=== PATIENT | female | born 1950 | race Caucasian/White ===

== ENCOUNTER → 2020-03-13 08:03 | Outpatient (BNVA) | payer MEDICARE, OTHER, SELFPAY | PROVIDERS: PCP Internal Medicine; Referring Provider Internal Medicine; Visit Provider Student in an Organized Health Care Education/Training Program | DX: Z13.89 Encounter for screening for other disorder (principal) | CPT/HCPCS: Q3014 ==

== ENCOUNTER 2021-07-18 11:01 | Outpatient (REF) | payer MEDICARE, OTHER, SELFPAY ==
--- NOTE | ~2021-07-18 | US_ITS ---
EXAMINATION: US VENOUS ULTRASOUND WITH DOPPLER LOWER EXTREMITY, LEFT CLINICAL INFORMATION: Left leg pain. COMPARISON: None TECHNIQUE: Ultrasound of the deep veins is performed from the hip to the calf with compression sonography and color and pulse Doppler assessment. Spectral analysis with color-flow imaging is performed. FINDINGS: There is normal venous compression and respiratory variation and augmented flow. The visualized common femoral vein, superficial femoral vein, profunda femoral vein, popliteal vein, and the trifurcation region shows no evidence of deep venous thrombosis. There is no significant popliteal fossa cyst. Trace amount of fluid is noted within the articular surface. If the patient's symptoms persist, followup ultrasound in 5 days 7 days might be of value to exclude proximal propagation from a non-visualized calf vein. US/US venous duplex LE IMPRESSION: No DVT demonstrated in the left lower extremity. Trace amount of fluid within the left knee.
== END 2021-07-18 11:02 | disposition home or self-care (01) ==
LOC: HO.US 11:01
PROVIDERS: PCP Internal Medicine; Visit Provider Internal Medicine
DX: M79.605 Pain in left leg (principal)
CPT/HCPCS: 93971

== ENCOUNTER 2023-02-04 09:23 | Outpatient (AMB) | payer OTHER, SELFPAY ==
[2023-02-04 09:25] VITALS: BP 130/70; PULSE 63; O2SAT 98; BMI 30.6
--- NOTE | 2023-02-04 09:25 | A.OFFPC_ITS ---
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: Not Required per policy Accompanied by: Self / Same As Patient Allergies penicillin V Allergy (Mild, Verified 02/04/23 09:44) Rash nabumetone Adverse Reaction (Intermediate, Verified 02/04/23 09:44) tinnitus Medication List - Last Reconciled 02/04/23 by Steven Casas MD acetaminophen ER (Tylenol Arthritis Pain) 650 mg PO Q8H PRN bupropion HCl 100 mg PO .QD 90 days cholecalciferol (vitamin D3) 50 mcg PO DAILY 90 days lorazepam 0.5 mg PO DAILY PRN 30 days methylphenidate HCl 10 mg PO BID PRN 30 days naproxen 500 mg PO BID PRN 10 days oxycodone 5 mg PO .2 to 3 times a day PRN 28 days tramadol 50 mg PO .3 to 4 times a day PRN 30 days Tobacco use date assessed: 07/08/22 Fall risk assessment: No Falls in past year Last assessed Fall Risk: 02/04/23 Dental Screening Dental Screen Date: 02/04/23 Did you have a dental visit in the last 12 months?: Yes Did you have a dental problem in the last 6 months where you did not have access to dental care?: No Was dental information given to patient?: Patient has dentist HPI fibromyalgia HPI Details Patient comes in today for her follow up States that she feels okay She denies any headaches or dizziness Denies any chest pains, no SOB No nausea/vomiting, no abdominal pain No change in bowel habits noted States that her muscle aches and joint pains remain mostly adequately controlled on her current meds She also sees her chiropractor when needed and states that her chiropractor has helped her a lot Needs her Vitamin D Rx refilled Had her follow up labs done at [facility] in June 2022; has had no other follow up labs done since [facility] Medical History Overweight (BMI 25.0-29.9) Vitamin D deficiency Menopause Primary osteoarthritis of hands, bilateral Attention deficit disorder (ADD) Atypical squamous cells of undetermined significance (ASC-US) on cervical Pap smear (~2003) Allergic rhinitis Osteoarthritis Anxiety Depression Fibromyalgia Surgical History Hx of colonoscopy (~06/2022) History of breast lift Family History Father Stroke Mother Cervical cancer Uterine cancer Hypertension Maternal Grandmother Stroke Afib Maternal Grandfather Alcohol abuse Other Substance abuse Social History Housing: House Alcohol intake: current Alcohol intake frequency: a few times a week Patient Tobacco Use Status: Never used Tobacco e-Cigarette/Vaping Use: Never Used Second Hand Smoke Exposure: Yes service: No Current occupational status: retired Cognitive needs: No Hearing needs: No Vision needs: Yes Questionnaire Thrive Questionnaire Date Thrive assessed: 07/08/22 BELLA-7 AMB Questionnaire BELLA-7 Date BELLA - 7 assessed: 07/08/22 Source: Developed by Drs. Garret Shaikh, Gaye Levin, Fredy Davis and colleagues, with an educational jonathan from [employer]. Review of Systems Const Reports fatigue, Denies fever(s) and Denies headache(s) ENT Denies dysphagia, Denies dizziness, Denies otalgia, Denies headache(s) and Denies sore throat Card Denies chest pain, Denies palpitations and Denies dyspnea Resp Denies cough and Denies dyspnea GI Denies abdominal pain, Denies constipation, Denies dysphagia, Denies heartburn, Denies nausea and Denies vomiting Denies difficulty voiding, Denies nocturia and Denies dysuria Musc Details: (+) on and off pain over both legs, often at night Denies back pain, Reports myalgias (diffuse myalgia, on and off, but mostly manageable) and Reports arthralgias (involving multiple joints, including her left knee) Skin/Breast Denies rash Neuro Denies dizziness and Denies headache(s) Endo Reports fatigue and Denies palpitations Physical exam (Primary Care) Vital Signs: Last Vital Signs Pulse 63 02/04/23 09:25 BP 130/70 02/04/23 09:25 Pulse Ox 98 02/04/23 09:25 Oxygen Delivery Method Room Air 02/04/23 09:25 BMI result Body Mass Index 30.6 Tobacco/Smoking Status: Tobacco use Status Tobacco use date assessed 07/08/22 02/04/23 09:26 Patient Tobacco Use Status Never used Tobacco 02/04/23 09:26 e-Cigarette/Vaping Use Never Used 02/04/23 09:26 Thrive Assessment: Date of Thrive Assessment Date Thrive assessed 07/08/22 02/04/23 09:26 Const General: no acute distress and alert HENMT Ears: TM's normal bilaterally and EAC's normal Throat: Yes posterior oropharynx normal and Yes tonsils normal (no TP congestion noted) Neck Neck: Yes no lymphadenopathy and Yes supple Resp Auscultation: clear to auscultation bilaterally, no rales and no wheezes Cardio Rate: regular rate Rhythm: regular rhythm Heart sounds: no murmurs GI Palpation (GI): Soft to palpation and nontender Auscultation: normal bowel sounds Back/Spine/Pelvis Thoracic/Lumbar Spine: lumbar spinal tenderness Extrem General: Yes no clubbing, cyanosis or edema Left lower extremity: knee ((+) small cyst behind the left knee (Han's cyst)) Details: tenderness; no swelling Assessment and Plan Assessment & Plan (1) Fibromyalgia: Code(s): M79.7 - Fibromyalgia Plan: Patient is encouraged again on regular exercises to help manage her fibromyalgia symptoms Continue Carisoprodol 350 mg TID PRN and Tramadol 50 mg TID PRN; takes Oxycodone 5 mg 2 to 3 times a day only as needed for severe pain that are not relieved by Tramadol (2) Left knee pain: Code(s): M25.562 - Pain in left knee Qualifiers: Chronicity: unspecified Qualified Code(s): M25.562 - Pain in left knee Plan: Left knee x-ray done at [facility] a few months ago came out normal Can continue to follow-up with orthopedics as scheduled although she has been seeing her chiropractor for this lately and feels that whatever they are doing is helping with her knee symptoms (3) Primary osteoarthritis of hands, bilateral: Code(s): M19.041 - Primary osteoarthritis, right hand; M19.042 - Primary osteoarthritis, left hand Plan: Takes OTC Tylenol ER 650 mg every 6 hours as needed Encouraged to continue with the hand exercises that she was previously taught regularly to help manage her hand and finger symptoms better (4) Anemia: Code(s): D64.9 - Anemia, unspecified Qualifiers: Anemia type: unspecified type Qualified Code(s): D64.9 - Anemia, unspecified Plan: H/H were normal on her labs done back in June 2022 Will continue to monitor her CBC regularly (5) Vitamin D deficiency: Code(s): E55.9 - Vitamin D deficiency, unspecified Plan: Continue Vitamin D3 2000 units QD - Rx refilled (6) Anxiety: Code(s): F41.9 - Anxiety disorder, unspecified Plan: Continue Lorazepam 0.5 mg QD PRN; Bupropion also helps with her anxiety (7) Depression: Code(s): F32.9 - Major depressive disorder, single episode, unspecified Qualifiers: Depression Type: major depressive disorder Major depression recurrence: recurrent Active/Remission status: currently active Major depression episode severity: unspecified Qualified Code(s): F33.9 - Major depressive disorder, recurrent, unspecified Plan: Continue Bupropion 100 mg TID (8) Attention deficit disorder (ADD): Code(s): F98.8 - Other specified behavioral and emotional disorders with onset usually occurring in childhood and adolescence Qualifiers: Hyperactivity presence: absent Qualified Code(s): F98.8 - Other specified behavioral and emotional disorders with onset usually occurring in childhood and adolescence Plan: Continue Methylphenidate 10 mg BID as needed - states that she only takes her Rx when she has a lot of paperworks to do at home (9) Overweight (BMI 25.0-29.9): Code(s): E66.3 - Overweight Plan: Reinforced diet/exercise as tolerated/lose weight Plan Follow up in 6 months Orders: Orders Complete Blood Count Auto Diff 6 Months D64.9 - Anemia, unspecified Comprehensive Wells. Panel Fast 6 Months E55.9 - Vitamin D deficiency, unspecified, M79.7 - Fibromyalgia, R73.01 - Impaired fasting glucose Lipid Panel 6 Months E78.00 - Pure hypercholesterolemia, unspecified TSH reflex Free T4 6 Months E78.00 - Pure hypercholesterolemia, unspecified Vitamin D 25-OH Total 6 Months E55.9 - Vitamin D deficiency, unspecified Hemoglobin A1c 6 Months R73.01 - Impaired fasting glucose UA CC w/rflx Micro + Cult 6 Months R30.0 - Dysuria Medications: Refilled cholecalciferol (vitamin D3) 50 mcg PO DAILY 90 days 90 caps 3RF E55.9 - Vitamin D deficiency, unspecified Coding Level of Care Code Est Pt Level 4 (55374) Diagnoses Fibromyalgia M79.7 Left knee pain, unspecified chronicity M25.562 Chronicity: unspecified Primary osteoarthritis of hands, bilateral M19.041; M19.042 Anemia, unspecified type D64.9 Anemia type: unspecified type Vitamin D deficiency E55.9 Anxiety F41.9 Episode of recurrent major depressive disorder, unspecified depression episode severity F33.9 Depression Type: major depressive disorder Major depression recurrence: recurrent Active/Remission status: currently active Major depression episode severity: unspecified Attention 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.8 Hyperactivity presence: absent Overweight (BMI 25.0-29.9) E66.3
== END 2023-02-04 09:53 | disposition home or self-care (01) ==
PROVIDERS: Visit Provider Internal Medicine
DX: M79.7 Fibromyalgia (principal); F33.9 Major depressive disorder, recurrent, unspecified; M25.562 Pain in left knee; M19.041 Primary osteoarthritis, right hand; M19.042 Primary osteoarthritis, left hand; D64.9 Anemia, unspecified; E55.9 Vitamin D deficiency, unspecified; F41.9 Anxiety disorder, unspecified; F98.8 Other specified behavioral and emotional disorders with onset usually occurring in childhood and adolescence; E66.3 Overweight
CPT/HCPCS: 99214

== ENCOUNTER 2023-08-09 08:56 | Outpatient (AMB) | payer OTHER, SELFPAY ==
--- NOTE | 2023-08-09 08:58 | MHC.PC.OV ---
Vital Signs 08/09/23 09:01 08/09/23 09:06 Height 5 ft 4 in Weight 171 lb 2 oz BMI 29.4 BP 140/70 H 122/70 Blood Pressure Location Lt brachial Rt brachial Position Sitting Sitting Pulse 66 Pulse Source Pulse Oximeter Pulse Oximetry (%) 97 Oxygen Delivery Method Room Air Intake Visit Reasons: 6 Month F/U Intake Note: Patient is here to follow up on IFG, Fibromyalgia, Depression. Screen And Cyclone Repairer Required: No Corporate Administrator: Not Required per policy Accompanied by: Self / Same As Patient Allergies penicillin V Allergy (Mild, Verified 08/09/23 09:48) Rash nabumetone Adverse Reaction (Intermediate, Verified 08/09/23 09:48) tinnitus Medication List - Last Reconciled 08/09/23 by Steven Casas MD acetaminophen ER (Tylenol Arthritis Pain) 650 mg PO Q8H PRN bupropion HCl 100 mg PO .QD 90 days cholecalciferol (vitamin D3) 50 mcg PO DAILY 90 days lorazepam 0.5 mg PO DAILY PRN 30 days methylphenidate HCl 10 mg PO BID PRN 30 days naproxen 500 mg PO BID PRN 10 days oxycodone 5 mg PO .2 to 3 times a day PRN 28 days scopolamine base (Transderm-Scop) 1 patch transdermal Q3D PRN tramadol 50 mg PO .3 to 4 times a day PRN 30 days Tobacco use date assessed: 08/09/23 Fall risk assessment: No Falls in past year Last assessed Fall Risk: 08/09/23 Dental Screening Dental Screen Date: 08/09/23 Did you have a dental visit in the last 12 months?: Yes Did you have a dental problem in the last 6 months where you did not have access to dental care?: No Was dental information given to patient?: Patient has dentist HPI 6 Month F/U HPI Details Patient comes in today for her follow up visit States that she feels okay She denies any headaches or dizziness States that it took a while for her previous bouts of vertigo to clear up but it gradually did with physical therapy, which she went to for a while Denies any chest pains, no SOB No nausea/vomiting, no abdominal pain No change in bowel habits noted States that her muscle aches and joint pains remain mostly adequately controlled on her current meds Would like to get refills on her Lorazepam and Carisoprodol - states that it has been a couple of years now since she last filled her Rx for Carisoprodol as she only takes it when absolutely needed Had her follow up labs done at [facility] in [place] a couple of weeks ago - to discuss her results [facility] Medical History Overweight (BMI 25.0-29.9) Vitamin D deficiency Menopause Primary osteoarthritis of hands, bilateral Attention deficit disorder (ADD) Atypical squamous cells of undetermined significance (ASC-US) on cervical Pap smear (~2003) Allergic rhinitis Osteoarthritis Anxiety Depression Fibromyalgia Surgical History Hx of colonoscopy (~06/2022) History of breast lift Family History Father Stroke Mother Cervical cancer Uterine cancer Hypertension Maternal Grandmother Stroke Afib Maternal Grandfather Alcohol abuse Other Substance abuse Social History Housing: House Alcohol intake: current Alcohol intake frequency: a few times a week Patient Tobacco Use Status: Never used Tobacco e-Cigarette/Vaping Use: Never Used Second Hand Smoke Exposure: Yes service: No Current occupational status: retired Cognitive needs: No Hearing needs: No Vision needs: Yes (Glasses) Questionnaire PHQ-9 Over the last 2 weeks, how often have you been bothered by any of the following problems? 1. Little interest or pleasure in doing things: not at all 2. Feeling down, depressed, or hopeless: not at all 3. Trouble falling or staying asleep, or sleeping too much: not at all 4. Feeling tired or having little energy: not at all 5. Poor appetite or overeating: not at all 6. Feeling bad about yourself - or that you are a failure or have let yourself or your family down: not at all 7. Trouble concentrating on things, such as reading the newspaper or watching television: not at all 8. Moving or speaking so slowly that other people could have noticed. Or the opposite - being so fidgety or restless that you have been moving around a lot more than usual: not at all 9. Thoughts that you would be better off or of hurting yourself in some way: not at all Total score: 0 Depression Screening Interpretation: Negative Depression Screening Done: Yes 99186 - PHQ-9 Billing: Yes Source: Developed by Drs. Garret Shaikh, Gaye Levin, Fredy Davis and colleagues, with an educational jonathan from [employer]. Thrive Questionnaire Date Thrive assessed: 08/09/23 I am a: Patient What is your living situation today?: I have a steady place to live Within the past 12 months, did the food you bought not last and you didn't have the money to get more?: Never true Within the past 12 months, did you worry whether your food would run out before you got money to buy more?: Never true Do you have trouble paying for medicines?: No Do you have trouble getting transportation to medical appointments?: No Do you have trouble paying your heating and electricity bill?: No Do you have trouble taking care of your child, family member or friend?: No Do you have trouble with day-to-day activities such as bathing, preparing meals, shopping, managing finances, etc.?: No Are you currently unemployed and looking for a job?: No Are you interested in more education?: No Currently or been in a relationship where the following occur: no concerns reported THRIVE Score: 0 AUDIT C Alcohol Use Questionnaire (AUDIT-C) 1. How often do you have a drink containing alcohol?: 2-3 times a week 2. How many drinks containing alcohol do you have on a typical day when you are drinking?: 1 or 2 3. How often do you have six or more drinks on one occasion?: Never Total Score: 3 Score Reviewed/Action Taken: Yes BELLA-7 AMB Questionnaire BELLA-7 Date BELLA - 7 assessed: 08/09/23 Feeling nervous, anxious, or on edge: 0 = Not at all Not being able to stop or control worryin = Not at all Worrying too much about different things: 0 = Not at all Trouble relaxin = Not at all Being so restless that it is hard to sit still: 0 = Not at all Becoming easily annoyed or irritable: 0 = Not at all Feeling afraid as if something awful might happen: 0 = Not at all Total BELLA-7 score (0-4 normal; 5-9 mild; 10-14 moderate; 15-21 severe): 0 Source: Developed by Drs. Garret Shaikh, Gaye Levin, Fredy Davis and colleagues, with an educational jonathan from [employer]. Review of Systems Const Denies chills, Denies fatigue, Denies fever(s) and Denies headache(s) ENT Denies dysphagia, Denies dizziness, Denies otalgia, Denies headache(s), Denies odynophagia and Denies sore throat Card Denies chest pain, Denies palpitations and Denies dyspnea Resp Denies cough and Denies dyspnea GI Denies abdominal pain, Denies constipation, Denies dysphagia, Denies heartburn, Denies diarrhea, Denies nausea, Denies odynophagia and Denies vomiting Denies difficulty voiding, Denies nocturia, Denies dysuria and Denies urinary urgency Musc Details: (+) on and off pain over both legs, often at night Denies back pain, Reports myalgias (diffuse myalgia, on and off, but mostly manageable) and Reports arthralgias (involving multiple joints, including her left knee) Skin/Breast Denies rash Neuro Denies dizziness and Denies headache(s) Endo Denies fatigue and Denies palpitations Physical exam (Primary Care) Vital Signs: Last Vital Signs Pulse 66 08/09/23 09:01 BP 122/70 08/09/23 09:06 Pulse Ox 97 08/09/23 09:01 Oxygen Delivery Method Room Air 08/09/23 09:01 BMI result Body Mass Index 29.4 Tobacco/Smoking Status: Tobacco use Status Tobacco use date assessed 08/09/23 08/09/23 09:03 Patient Tobacco Use Status Never used Tobacco 08/09/23 09:03 e-Cigarette/Vaping Use Never Used 08/09/23 09:03 PHQ-9: PHQ-9 Score PHQ-9: Total score 0 08/09/23 09:03 Depression Screening Interpretation: Negative Thrive Assessment: Date of Thrive Assessment Date Thrive assessed 08/09/23 08/09/23 09:03 Currently or been in a relationship where the following occur: no concerns reported Const General: no acute distress and alert HENMT Ears: TM's normal bilaterally and EAC's normal Throat: Yes posterior oropharynx normal and Yes tonsils normal (no TP congestion noted) Neck Neck: Yes no lymphadenopathy and Yes supple Thyroid: Thyroid normal Resp Auscultation: clear to auscultation bilaterally, no rales and no wheezes Cardio Rate: regular rate Rhythm: regular rhythm Heart sounds: no murmurs GI Palpation (GI): Soft to palpation and nontender Auscultation: normal bowel sounds General: Yes no CVA tenderness Back/Spine/Pelvis Back: no CVA tenderness Thoracic/Lumbar Spine: lumbar spinal tenderness (mild) Skin Rashes: no rashes Extrem General: Yes no clubbing, cyanosis or edema Left lower extremity: knee ((+) small cyst behind the left knee (Han's cyst)) Details: tenderness; no swelling Assessment and Plan Assessment & Plan (1) Fibromyalgia: Code(s): M79.7 - Fibromyalgia Plan: Patient is encouraged again on regular exercises to help manage her fibromyalgia symptoms Continue Carisoprodol 350 mg TID PRN and Tramadol 50 mg TID PRN; takes Oxycodone 5 mg 2 to 3 times a day only as needed for severe pain that are not relieved by Tramadol (2) Left knee pain: Code(s): M25.562 - Pain in left knee Qualifiers: Chronicity: unspecified Qualified Code(s): M25.562 - Pain in left knee Plan: Left knee x-ray done at [facility] a few months ago came out normal Follow-up with orthopedics or chiropractor as scheduled or as needed (3) Primary osteoarthritis of hands, bilateral: Code(s): M19.041 - Primary osteoarthritis, right hand; M19.042 - Primary osteoarthritis, left hand Plan: Takes OTC Tylenol ER 650 mg every 6 hours as needed She is again encouraged to continue with the hand exercises that she was previously taught regularly to help manage her hand and finger symptoms better (4) Anemia: Code(s): D64.9 - Anemia, unspecified Qualifiers: Anemia type: unspecified type Qualified Code(s): D64.9 - Anemia, unspecified Plan: H/H were normal on her recent labs Will continue to monitor her CBC regularly (5) Vitamin D deficiency: Code(s): E55.9 - Vitamin D deficiency, unspecified Plan: Continue Vitamin D3 2000 units QD (6) Anxiety: Code(s): F41.9 - Anxiety disorder, unspecified Plan: Continue Lorazepam 0.5 mg QD PRN; Bupropion also helps with her anxiety (7) Depression: Code(s): F32.9 - Major depressive disorder, single episode, unspecified Qualifiers: Depression Type: major depressive disorder Major depression recurrence: recurrent Active/Remission status: currently active Major depression episode severity: unspecified Qualified Code(s): F33.9 - Major depressive disorder, recurrent, unspecified Plan: Continue Bupropion 100 mg TID (8) Attention deficit disorder (ADD): Code(s): F98.8 - Other specified behavioral and emotional disorders with onset usually occurring in childhood and adolescence Qualifiers: Hyperactivity presence: absent Qualified Code(s): F98.8 - Other specified behavioral and emotional disorders with onset usually occurring in childhood and adolescence Plan: Continue Methylphenidate 10 mg BID as needed - states that she only takes her Rx when she has a lot of paperworks to do at home (9) Overweight (BMI 25.0-29.9): Code(s): E66.3 - Overweight Plan: Reinforced diet/exercise as tolerated/lose weight Plan Follow up in 6 months Medications: Refilled carisoprodol 350 mg PO TID 10 days PRN 30 tabs 0RF muscle spasms lorazepam 0.5 mg PO DAILY 30 days PRN 30 tabs 0RF anxiety Coding Level of Care Code Est Pt Level 4 (03601) Diagnoses Fibromyalgia M79.7 Left knee pain, unspecified chronicity M25.562 Chronicity: unspecified Primary osteoarthritis of hands, bilateral M19.041; M19.042 Anemia, unspecified type D64.9 Anemia type: unspecified type Vitamin D deficiency E55.9 Anxiety F41.9 Episode of recurrent major depressive disorder, unspecified depression episode severity F33.9 Depression Type: major depressive disorder Major depression recurrence: recurrent Active/Remission status: currently active Major depression episode severity: unspecified Attention 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.8 Hyperactivity presence: absent Overweight (BMI 25.0-29.9) E66.3
[2023-08-09 09:01] VITALS: BP 140/70; PULSE 66; O2SAT 97; BMI 29.4
[2023-08-09 09:06] VITALS: BP 122/70
== END 2023-08-09 10:01 | disposition home or self-care (01) ==
PROVIDERS: PCP Internal Medicine; Visit Provider Internal Medicine
DX: M79.7 Fibromyalgia (principal); M25.562 Pain in left knee; M19.041 Primary osteoarthritis, right hand; F33.9 Major depressive disorder, recurrent, unspecified; M19.042 Primary osteoarthritis, left hand; D64.9 Anemia, unspecified; E55.9 Vitamin D deficiency, unspecified; F41.9 Anxiety disorder, unspecified; F98.8 Other specified behavioral and emotional disorders with onset usually occurring in childhood and adolescence; E66.3 Overweight
CPT/HCPCS: 99214

== ENCOUNTER 2024-04-27 11:35 | Outpatient (AMB) | payer OTHER, SELFPAY ==
[2024-04-27 11:36] VITALS: BP 122/78; PULSE 59; O2SAT 99
--- NOTE | 2024-04-27 11:36 | A.OFFPC_ITS ---
Vital Signs 04/27/24 11:36 Height 5 ft 4 in BMI Reason not done Patient refused/unable BP 122/78 Blood Pressure Location Lt brachial Position Sitting Pulse 59 Pulse Source Pulse Oximeter Pulse Oximetry (%) 99 Oxygen Delivery Method Room Air Intake Visit Reasons: Rsched from 02/09 Fibromyalgia, ADD, IFG, OA Sourcing Consultant Required: No Accompanied by: Self / Same As Patient Allergies penicillin V Allergy (Mild, Verified 04/27/24 12:04) Rash nabumetone Adverse Reaction (Intermediate, Verified 04/27/24 12:04) tinnitus Medication List - Last Reconciled 04/27/24 by Steven Casas MD acetaminophen ER (Tylenol Arthritis Pain) 650 mg PO Q8H PRN bupropion HCl 100 mg PO .QD 90 days carisoprodol 350 mg PO TID PRN 10 days cholecalciferol (vitamin D3) 50 mcg PO DAILY 90 days lorazepam 0.5 mg PO DAILY PRN 30 days methylphenidate HCl 10 mg PO BID PRN 30 days naproxen 500 mg PO BID PRN 10 days oxycodone 5 mg PO .2 to 3 times a day PRN 28 days scopolamine base (Transderm-Scop) 1 patch transdermal Q3D PRN tramadol 50 mg PO .3 to 4 times a day PRN 30 days Tobacco use date assessed: 04/27/24 Fall risk assessment: No Falls in past year Last assessed Fall Risk: 04/27/24 Dental Screening Dental Screen Date: 04/27/24 Did you have a dental visit in the last 12 months?: Yes Did you have a dental problem in the last 6 months where you did not have access to dental care?: No Was dental information given to patient?: Patient has dentist HPI Rsched from 02/09 Fibromyalgia, ADD, IFG, OA HPI Details Patient comes in today for her follow up visit States that she feels okay She denies any headaches or dizziness Denies any chest pains, no SOB No nausea/vomiting, no abdominal pain No change in bowel habits noted States that her muscle aches and joint pains remain mostly adequately controlled on her current meds - needs a couple of her Rx refilled today She had her follow-up labs done at [facility] in [place], [place] a couple of days ago - to discuss her results [facility] Medical History Overweight (BMI 25.0-29.9) Vitamin D deficiency Menopause Primary osteoarthritis of hands, bilateral Attention deficit disorder (ADD) Atypical squamous cells of undetermined significance (ASC-US) on cervical Pap smear (~2003) Allergic rhinitis Osteoarthritis Anxiety Depression Fibromyalgia Surgical History Hx of colonoscopy (~06/2022) History of breast lift Family History Father Stroke Mother Cervical cancer Uterine cancer Hypertension Maternal Grandmother Stroke Afib Maternal Grandfather Alcohol abuse Other Substance abuse Social History Housing: House Alcohol intake: current Alcohol intake frequency: a few times a week Patient Tobacco Use Status: Never used Tobacco e-Cigarette/Vaping Use: Never Used Second Hand Smoke Exposure: Yes service: No Current occupational status: retired Cognitive needs: No Hearing needs: No Vision needs: Yes (Glasses) Questionnaire PHQ-9 Over the last 2 weeks, how often have you been bothered by any of the following problems? 1. Little interest or pleasure in doing things: not at all 2. Feeling down, depressed, or hopeless: not at all 3. Trouble falling or staying asleep, or sleeping too much: not at all 4. Feeling tired or having little energy: not at all 5. Poor appetite or overeating: not at all 6. Feeling bad about yourself - or that you are a failure or have let yourself or your family down: not at all 7. Trouble concentrating on things, such as reading the newspaper or watching television: not at all 8. Moving or speaking so slowly that other people could have noticed. Or the opposite - being so fidgety or restless that you have been moving around a lot more than usual: not at all 9. Thoughts that you would be better off or of hurting yourself in some way: not at all Total score: 0 Depression Screening Interpretation: Negative Depression Screening Done: Yes 06107 - PHQ-9 Billing: Yes Source: Developed by Drs. Garret Shaikh, Gaye B.Fredy Plata and colleagues, with an educational jonathan from [employer]. Thrive Questionnaire Date Thrive assessed: 04/27/24 I am a: Patient What is your living situation today?: I have a steady place to live Within the past 12 months, did the food you bought not last and you didn't have the money to get more?: Never true Within the past 12 months, did you worry whether your food would run out before you got money to buy more?: Never true Do you have trouble paying for medicines?: No Do you have trouble getting transportation to medical appointments?: No Do you have trouble paying your heating and electricity bill?: No Do you have trouble taking care of your child, family member or friend?: No Do you have trouble with day-to-day activities such as bathing, preparing meals, shopping, managing finances, etc.?: No Are you currently unemployed and looking for a job?: No Are you interested in more education?: No Please select the resources that you would like help with: None Currently or been in a relationship where the following occur: No concerns reported THRIVE Score: 0 AUDIT C Alcohol Use Questionnaire (AUDIT-C) 1. How often do you have a drink containing alcohol?: 2-3 times a week 2. How many drinks containing alcohol do you have on a typical day when you are drinking?: 1 or 2 3. How often do you have six or more drinks on one occasion?: Never Total Score: 3 Score Reviewed/Action Taken: Yes BELLA-7 AMB Questionnaire BELLA-7 Date BELLA - 7 assessed: 04/27/24 Feeling nervous, anxious, or on edge: 0 = Not at all Not being able to stop or control worryin = Not at all Worrying too much about different things: 0 = Not at all Trouble relaxin = Not at all Being so restless that it is hard to sit still: 0 = Not at all Becoming easily annoyed or irritable: 0 = Not at all Feeling afraid as if something awful might happen: 0 = Not at all Total BELLA-7 score (0-4 normal; 5-9 mild; 10-14 moderate; 15-21 severe): 0 Source: Developed by Drs. Garret Shaikh, Fredy Maher and colleagues, with an educational jonathan from [employer]. Review of Systems Const Denies chills, Denies fatigue, Denies fever(s) and Denies headache(s) ENT Denies dysphagia, Denies dizziness, Denies otalgia, Denies headache(s), Denies odynophagia and Denies sore throat Card Denies chest pain, Denies palpitations and Denies dyspnea Resp Denies cough and Denies dyspnea GI Denies abdominal pain, Denies constipation, Denies dysphagia, Denies heartburn, Denies diarrhea, Denies nausea, Denies odynophagia and Denies vomiting Denies difficulty voiding, Denies nocturia, Denies dysuria and Denies urinary urgency Musc Details: (+) on and off pain over both legs, often at night Denies back pain, Reports myalgias (diffuse myalgia, on and off, but mostly manageable) and Reports arthralgias (involving multiple joints, including her left knee) Skin/Breast Denies rash Neuro Denies dizziness and Denies headache(s) Endo Denies fatigue and Denies palpitations Physical exam (Primary Care) Vital Signs: Last Vital Signs Pulse 59 04/27/24 11:36 BP 122/78 04/27/24 11:36 Pulse Ox 99 04/27/24 11:36 Oxygen Delivery Method Room Air 04/27/24 11:36 Tobacco/Smoking Status: Tobacco use Status Tobacco use date assessed 04/27/24 04/27/24 11:42 Patient Tobacco Use Status Never used Tobacco 04/27/24 11:42 e-Cigarette/Vaping Use Never Used 04/27/24 11:42 PHQ-9: PHQ-9 Score PHQ-9: Total score 0 04/27/24 12:11 Depression Screening Interpretation: Negative Thrive Assessment: Date of Thrive Assessment Date Thrive assessed 04/27/24 04/27/24 11:42 Currently or been in a relationship where the following occur: No concerns reported Const General: no acute distress and alert HENMT Ears: TM's normal bilaterally and EAC's normal Throat: Yes posterior oropharynx normal and Yes tonsils normal (no TP congestion noted) Neck Neck: Yes supple and No lymphadenopathy Thyroid: Thyroid normal Resp Auscultation: clear to auscultation bilaterally, no rales and no wheezes Cardio Rate: regular rate Rhythm: regular rhythm Heart sounds: no murmurs GI Palpation (GI): Soft to palpation and nontender Auscultation: normal bowel sounds General: Yes no CVA tenderness Back/Spine/Pelvis Back: no CVA tenderness Thoracic/Lumbar Spine: lumbar spinal tenderness (mild) Skin Rashes: no rashes Extrem General: Yes no clubbing, cyanosis or edema Left lower extremity: knee Details: tenderness (mild); no swelling Coding Level of Care Code Est Pt Level 4 (18958) Diagnoses Fibromyalgia M79.7 Primary osteoarthritis of hands, bilateral M19.041; M19.042 Anemia, unspecified type D64.9 Anemia type: unspecified type Vitamin D deficiency E55.9 Impaired fasting glucose R73.01 Anxiety F41.9 Episode of recurrent major depressive disorder, unspecified depression episode severity F33.9 Depression Type: major depressive disorder Major depression recurrence: recurrent Active/Remission status: currently active Major depression episode severity: unspecified Attention 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.8 Hyperactivity presence: absent Overweight (BMI 25.0-29.9) E66.3 Encounter for screening mammogram for malignant neoplasm of breast Z12.31 Breast cancer screening modality: mammogram Screening for osteoporosis Z13.820 Additional Codes PHQ-9 - 66561 - PHQ-9 Billing: Yes ([id number]) Assessment & Plan Assessment & Plan (1) Fibromyalgia: Code(s): M79.7 - Fibromyalgia Category: Medical Plan: Patient is again encouraged on regular exercises and physical activity to help manage her fibromyalgia symptoms Continue Carisoprodol 350 mg TID PRN and Tramadol 50 mg TID PRN; she takes Oxycodone 5 mg 2 to 3 times a day only as needed for severe pain that are not relieved by Tramadol (2) Primary osteoarthritis of hands, bilateral: Code(s): M19.041 - Primary osteoarthritis, right hand; M19.042 - Primary osteoarthritis, left hand Category: Medical Plan: She takes OTC Tylenol ER 650 mg every 6 hours as needed Patient is again encouraged to continue with the hand exercises that she was previously taught on a regular basis to help manage her hand and finger symptoms (3) Anemia: Code(s): D64.9 - Anemia, unspecified Category: Medical Qualifiers: Anemia type: unspecified type Qualified Code(s): D64.9 - Anemia, unspecified Plan: Her H/H were normal on her recent labs Will continue to monitor her CBC regularly (4) Vitamin D deficiency: Code(s): E55.9 - Vitamin D deficiency, unspecified Category: Medical Plan: Continue Vitamin D3 2000 units QD (5) Impaired fasting glucose: Code(s): R73.01 - Impaired fasting glucose Category: Medical Plan: Her HgbA1c still pending at this time - we will try to follow-up the results of this over the next couple of days Reinforced low calorie/low carb diet (6) Anxiety: Code(s): F41.9 - Anxiety disorder, unspecified Category: Medical Plan: Continue Lorazepam 0.5 mg QD PRN; Bupropion also helps with her anxiety (7) Depression: Code(s): F32.9 - Major depressive disorder, single episode, unspecified Category: Medical Qualifiers: Depression Type: major depressive disorder Major depression recurrence: recurrent Active/Remission status: currently active Major depression episode severity: unspecified Qualified Code(s): F33.9 - Major depressive disorder, recurrent, unspecified Plan: Continue Bupropion 100 mg TID (8) Attention deficit disorder (ADD): Code(s): F98.8 - Other specified behavioral and emotional disorders with onset usually occurring in childhood and adolescence Category: Medical Qualifiers: Hyperactivity presence: absent Qualified Code(s): F98.8 - Other specified behavioral and emotional disorders with onset usually occurring in childhood and adolescence Plan: Continue Methylphenidate 10 mg BID as needed - states that she only takes her Rx when she has a lot of paperworks to do at home (9) Overweight (BMI 25.0-29.9): Code(s): E66.3 - Overweight Category: Medical Plan: Reinforced diet/exercise as tolerated/lose weight (10) Breast cancer screening: Code(s): Z12.39 - Encounter for other screening for malignant neoplasm of breast Category: Medical Qualifiers: Breast cancer screening modality: mammogram Qualified Code(s): Z12.31 - Encounter for screening mammogram for malignant neoplasm of breast Plan: Per request, will send her annual screening mammogram (11) Screening for osteoporosis: Code(s): Z13.820 - Encounter for screening for osteoporosis Category: Medical Plan: Will also send patient for repeat BMD for osteoporosis screening Her last BMD done in 2020 came up with normal bone density Plan Follow-up in 6 months Orders: Orders XR DEXA axial skeleton 04/27/24 Z78.0 - Asymptomatic menopausal state Comprehensive [place]. Panel Fast 6 Months E78.00 - Pure hypercholesterolemia, unspecified Vitamin D 25-OH Total 6 Months E55.9 - Vitamin D deficiency, unspecified Lipid Panel 6 Months E78.00 - Pure hypercholesterolemia, unspecified MM tomosynthesis screening BI 04/27/24 Z12.31 - Encounter for screening mammogram for malignant neoplasm of breast Complete Blood Count Auto Diff 6 Months D64.9 - Anemia, unspecified UA CC w/rflx Micro + Cult 6 Months R30.0 - Dysuria TSH reflex Free T4 6 Months E78.00 - Pure hypercholesterolemia, unspecified Hemoglobin A1c 6 Months E11.9 - Type 2 diabetes mellitus without complications Medications: Refilled methylphenidate HCl 10 mg PO BID 30 days PRN 60 tabs 0RF attention deficit F98.8 - Other specified behavioral and emotional disorders with onset usually occurring in childhood and adolescence oxycodone 5 mg PO .2 to 3 times a day 28 days PRN 56 tabs 0RF pain
--- OUTSIDE RECORDS SUMMARY | 2024-04-27 12:55 | XMS_ITS | Clinical Summary ---
Author Organization [facility] Address [address] [place] [address] Phone Care Team Providers Care Telecom Analyst Name Role Phone Diane Cui MD Primary Care Provider [phone] Immunizations Name Administration Dates Next Due Pfizer SARS-CoV-2 COVID-19, mRNA, LNP-S, preservative free 12/05/2020 Medical History Medical History Date Comments Depression DX:Depression Social History Tobacco Use Types Packs/Day Years Used Date Smoking Tobacco: Never Smokeless Tobacco: Never Comments Unknown Sex and Gender Information Value Date Recorded Sex Assigned at Female 04/26/2024 7:32 AM EST Legal Sex Female 5:00 PM EST Gender Identity Female 04/26/2024 7:32 AM EST Sexual Orientation Straight 04/26/2024 7: 32 AM EST Obstetrics History Plan of Treatment Health Maintenance Due Date Last Done Comments DTaP,Tdap,and Td Vaccines (1 - Tdap) 07/14/1970 Pneumococcal Vaccine: 50+ Years (1 of 1 - PCV) 07/14/2001 Zoster Vaccines (1 of 2) 07/14/2001 Colorectal Cancer Screening: Colonoscopy 02/04/2022 Depression Screening 02/04/2022 Falls Risk Assessment 02/04/2022 Hepatitis C Screening 02/04/2022 Medicare Annual Wellness Visit 02/04/2022 Social Influencers of Health Screening 02/04/2022 Breast Cancer Screening 08/13/2022 08/13/2020, 12/21 COVID-19 Vaccine ( season) 2023 12/24/2022, 11/13/2021, 12/05/2020 Influenza Vaccine (#1) 2023 11/06/2022 Cholesterol Screening (Lipid Panel) 04/26/2029 04/26/2024, 07/27/2023, 07/27/2023, Additional history exists Osteoporosis Screening (Bone Density Screening) 08/13/2030 08/13/2020 RSV Immunization Patients 60+ Years Old Completed 11/06/2022 HIB Vaccines Aged Out No longer eligi ble based on patient's age to complete this topic HPV Vaccines Aged Out No longer eligi ble based on patient's age to complete this topic Hepatitis A Vaccines Aged Out No long er eligible based on patient's age to complete this topic Hepatitis B Vaccines Aged Out No long er eligible based on patient's age to complete this topic IPV Vaccines Aged Out No longer eligi ble based on patient's age to complete this topic MMR Vaccines Aged Out No longer eligi ble based on patient's age to complete this topic Meningococcal ACWY Vaccine Aged Out N o longer eligible based on patient's age to complete this topic Meningococcal B Vacine Aged Out No lo nger eligible based on patient's age to complete this topic RSV Immunization Patients Under 20 months Aged Out No longer eligible based on patient's age to complete this topic Varicella Vaccines Aged Out No longer eligible based on patient's age to complete this topic Procedures Procedure Name Priority Date/Time Associated Diagnosis Comments ..URINALYSIS MICROSCOPIC REFLEX URINE CULTURE Routine 04/26/2024 8:09 AM EST Pure hypercholesterolemia Impaired fasting glucose Anemia, unspecified Dysuria Avitaminosis D URINALYSIS WITH REFLEX MICROSCOPIC AND CULTURE Routine 04/26/2024 8:09 AM EST Pure hypercholesterolemia Impaired fasting glucose Anemia, unspecified Dysuria Avitaminosis D CBC WITH AUTO DIFFERENTIAL Routine 04/26/2024 8:09 AM EST Pure hypercholesterolemia Impaired fasting glucose Anemia, unspecified Dysuria Avitaminosis D VITAMIN D 25 HYDROXY Routine 04/26/2024 8:09 AM EST Pure hypercholesterolemia Impaired fasting glucose Anemia, unspecified Dysuria Avitaminosis D URINALYSIS WITH REFLEX MICROSCOPIC AND CULTURE Routine 04/26/2024 8:09 AM EST Pure hypercholesterolemia Impaired fasting glucose Anemia, unspecified Dysuria Avitaminosis D THYROID STIMULATING HORMONE WITH REFLEX FREE T4 Routine 04/26/2024 8:09 AM EST Pure hypercholesterolemia Impaired fasting glucose Anemia, unspecified Dysuria Avitaminosis D CBC AND DIFFERENTIAL Routine 04/26/2024 8:09 AM EST Pure hypercholesterolemia Impaired fasting glucose Anemia, unspecified Dysuria Avitaminosis D HEMOGLOBIN A1C Routine 04/26/2024 8:09 AM EST Pure hypercholesterolemia Impaired fasting glucose Anemia, unspecified Dysuria Avitaminosis D FOLATE Routine 04/26/2024 8:09 AM EST Pure hypercholesterolemia Impaired fasting glucose Anemia, unspecified Dysuria Avitaminosis D LIPID PANEL WITH REFLEX TO DIRECT LDL Routine 04/26/2024 8:09 AM EST Pure hypercholesterolemia Impaired fasting glucose Anemia, unspecified Dysuria Avitaminosis D COMPREHENSIVE METABOLIC PANEL Routine 04/26/2024 8:09 AM EST Pure hypercholesterolemia Impaired fasting glucose Anemia, unspecified Dysuria Avitaminosis D CULTURE URINE Routine 04/26/2024 8:09 AM EST Pure hypercholesterolemia Impaired fasting glucose Anemia, unspecified Dysuria Avitaminosis D [facility] DEXA AXIAL SKELETON Routine 08/13/2020 5:28 PM EDT Encounter for screening for osteoporosis [facility] SCREENING DIGITAL Routine 08/13/2020 2:28 PM EDT Encounter for screening mammogram for malignant neoplasm of breast from Last 3 Months or Most Recently Relevant to Health Maintenance Results * (ABNORMAL) Urinalysis with reflex microscopic and culture (04/26/2024 8:09 AM EST) [facility] Signature Color, Urine Yellow Colorless, Yellow LAB URINALYSIS - AUTOMATED METHOD 04/26/2024 8:15 AM [facility] Clarity, Urine Clear Clear LAB URINALYSIS - AUTOMATED METHOD 04/26/2024 8:15 AM [facility] Specific Miller Urine 1.025 1.005 - 1.030 LAB URINALYSIS - AUTOMATED METHOD 04/26/2024 8:15 AM [facility] pH, Urine 5.5 5.0 - 8.0 pH LAB URINALYSIS - AUTOMATED METHOD 04/26/2024 8:15 AM [facility] Leukocytes, Urine Trace(A) Negative WBCs/mcL LAB URINALYSIS - AUTOMATED METHOD 04/26/2024 8:15 AM [facility] Nitrite, Urine Negative Negative LAB URINALYSIS - AUTOMATED METHOD 04/26/2024 8:15 AM [facility] Protein, Urine Negative Negative mg/dL LAB URINALYSIS - AUTOMATED METHOD 04/26/2024 8:15 AM [facility] Glucose, Urine Negative Negative mg/dL LAB URINALYSIS - AUTOMATED METHOD 04/26/2024 8:15 AM [facility] Ketones, Urine Negative Negative mg/dL LAB URINALYSIS - AUTOMATED METHOD 04/26/2024 8:15 AM [facility] Blood, Urine Small(A) Negative mg/dL LAB URINALYSIS - AUTOMATED METHOD 04/26/2024 8:15 AM [facility] Urine Urine specimen obtained by clean catch procedure / Unknown Non-blood Collection / Unknown 04/26/2024 8:09 AM EST 04/26/2024 8:12 AM EST us Diane Cui MD LAB URINE ORDERABLES Final R esult [facility] [address] [place] [address], [place] [phone] * (ABNORMAL) Urinalysis microscopic reflex urine culture (04/26/2024 8:09 AM EST) RBC, Urine 3 0 - 3 /HPF 04/26/2024 8:32 AM EST [facility] WBC, Urine 6(H) 0 - 5 /HPF 04/26/2024 8:32 AM [facility] Bacteria, Urine Trace(A) None /HPF 04/26/2024 8:32 AM [facility] Squamous Epithelial, Urine 1 0 - 5 /HPF 04/26/2024 8:32 AM [facility] WBC Clumps, Urine Rare(A) None /HPF 04/26/2024 8:32 AM [facility] Urine Urine specimen obtained by clean catch procedure / Unknown Non-blood Collection / Unknown 04/26/2024 8:09 AM EST 04/26/2024 8:12 AM EST us Diane Cui MD LAB URINE ORDERABLES Final R esult [facility] [address] [place] [address], [place] [phone] * (ABNORMAL) Lipid panel with reflex to direct LDL (04/26/2024 8:09 AM EST) Pathologist [facility] Cholesterol 195 0 - 200 mg/dL LAB CHEMISTRY METHOD 04/26/2024 2:[address] [facility] Triglycerides 56 <150 mg/dL LAB CHEMISTRY METHOD 04/26/2024 2:[address] [facility] HDL 95(H) 33 - 92 mg/dL LAB CHEMISTRY METHOD 04/26/2024 2:[address] [facility] LDL Calculated 89 50 - 130 mg/dL LAB CHEMISTRY METHOD 04/26/2024 2:49 PM EST [facility] VLDL Cholesterol Jose 11.2 mg/dL LAB CHEMISTRY METHOD 04/26/2024 2:49 PM EST [facility] Comment:No established refer ence range. Blood Venous blood specimen / Unknown Venipuncture / Unknown 04/26/2024 8:09 AM EST 04/26/2024 8:12 AM EST Diane Cui MD LAB BLOOD ORDERABLES Final R esult [facility] [address] [place] [address], [place] [phone] * Thyroid stimulating hormone with reflex free T4 (04/26/2024 8:09 AM EST) TSH 1.93 0.45 - 5.33 mcIU/mL LAB CHEMISTRY METHOD 04/26/2024 9:45 AM EST [facility] Blood Venous blood specimen / Unknown Venipuncture / Unknown 04/26/2024 8:09 AM EST 04/26/2024 8:12 AM EST Diane Cui MD LAB BLOOD ORDERABLES Final R esult [facility] [address] [place] [address], [place] [phone] * (ABNORMAL) CBC auto differential (04/26/2024 8:09 AM EST) WBC 4.6 4.0 - 10.5 K/mcL LAB HEMETOLOGY METHOD 04/26/2024 8:14 AM EST [facility] RBC 4.12(L) 4.20 - 5.40 M/mcL LAB HEMETOLOGY METHOD 04/26/2024 8:14 AM EST [facility] Hemoglobin 12.8 12.5 - 16.0 g/dL LAB HEMETOLOGY METHOD 04/26/2024 8:14 AM [facility] Hematocrit 39.6 37.0 - 47.0 % LAB HEMETOLOGY METHOD 04/26/2024 8:14 AM [facility] MCV 96.1 78.0 - 100.0 FL LAB HEMETOLOGY METHOD 04/26/2024 8:14 AM [facility] MCH 31.1 25.0 - 33.0 pcg LAB HEMETOLOGY METHOD 04/26/2024 8:14 AM [facility] MCHC 32.3 32.0 - 36.0 g/dL LAB HEMETOLOGY METHOD 04/26/2024 8:14 AM [facility] RDW 12.7 12.1 - 16.2 % LAB HEMETOLOGY METHOD 04/26/2024 8:14 AM [facility] Platelets 257 150 - 450 K/mcL LAB HEMETOLOGY METHOD 04/26/2024 8:14 AM [facility] MPV 9.5 7.4 - 11.4 FL LAB HEMETOLOGY METHOD 04/26/2024 8:14 AM [facility] Neutrophils Relative 54.5 44.0 - 74.0 % LAB HEMETOLOGY METHOD 04/26/2024 8:14 AM [facility] Lymphocytes Relative 36.3 20.0 - 48.0 % LAB HEMETOLOGY METHOD 04/26/2024 8:14 AM [facility] Monocytes Relative 6.5 2.0 - 12.0 % LAB HEMETOLOGY METHOD 04/26/2024 8:14 AM [facility] Eosinophils Relative 1.9 0.0 - 6.0 % LAB HEMETOLOGY METHOD 04/26/2024 8:14 AM [facility] Basophils Relative 0.4 0.0 - 2.0 % LAB HEMETOLOGY METHOD 04/26/2024 8:14 AM EST [facility] Neutrophils Absolute 2.52 1.80 - 7.80 K/mcL LAB HEMETOLOGY METHOD 04/26/2024 8:14 AM EST [facility] Lymphocytes Absolute 1.68 1.00 - 3.20 K/mcL LAB HEMETOLOGY METHOD 04/26/2024 8:14 AM EST [facility] Monocytes Absolute 0.30 0.00 - 0.80 K/[facility] LAB HEMETOLOGY METHOD 04/26/2024 8:14 AM EST [facility] Eosinophils Absolute 0.09 0.00 - 0.50 K/mcL LAB HEMETOLOGY METHOD 04/26/2024 8:14 AM EST [facility] Basophils Absolute <0.03 0.00 - 0.20 K/mcL LAB HEMETOLOGY METHOD 04/26/2024 8:14 AM EST [facility] Blood Venous blood specimen / Unknown Venipuncture / Unknown 04/26/2024 8:09 AM EST 04/26/2024 8:12 AM EST Diane Cui MD LAB BLOOD ORDERABLES Final R esult [facility] [address] [place] [address], * (ABNORMAL) Vitamin D 25 hydroxy (04/26/2024 8:09 AM EST) Vit D, 25-Hydroxy 29.5(L) 30.0 - 100.0 ng/mL LAB CHEMISTRY METHOD 04/26/2024 3:10 PM EST [facility] Blood Venous blood specimen / Unknown Venipuncture / Unknown 04/26/2024 8:09 AM EST 04/26/2024 8:12 AM EST Narrative [facility] - 04/26/2024 3:10 PM EST Vitamin D ?Reference Range ng/ml Deficiency ? <10 Insufficiency ??10-30 Sufficiency ?30-100 Toxicity ? >100 Diane Cui MD LAB BLOOD ORDERABLES Final R esult Performing Organization Address City/[facility]/ZIP Co de Phone Number [facility] [address] [place] [address], [place] [phone] * Culture urine (04/26/2024 8:09 AM EST) Pathologist [facility] Culture, Urine No growth 04/27/2024 11:30 AM EST [facility] Urine Urine specimen obtained by clean catch procedure / Unknown Non-blood Collection / Unknown 04/26/2024 8:09 AM EST 04/26/2024 8:32 AM EST us Diane Cui MD LAB MICROBIOLOGY - GENERAL O RDERABLES Final Result Performing Organization Address City/[facility]/ZIP Co de Phone Number [facility] [address] [place] [address], [place] [phone] * (ABNORMAL) Hemoglobin A1c (04/26/2024 8:09 AM EST) Hemoglobin A1C 5.7(H) <5.7 % LAB CHEMISTRY METHOD 04/27/2024 6:44 AM EST [facility] Mean Bld Glu Estim. 117 mg/dL LAB CHEMISTRY METHOD 04/27/2024 6:44 AM EST [facility] Blood Venous blood specimen / Unknown Venipuncture / Unknown 04/26/2024 8:09 AM EST 04/26/2024 8:11 AM EST Narrative [facility] - 04/27/2024 6:44 AM EST ADA Guidelines: ?? Increased risk Diabetes Mellitus A1C 5.7 - 6.4% and Fasting Blood Glucose 100 - 125 mg/dl Diabetes Mellitus: A1C >6.5% and Fasting Blood Glucose >125 mg/dl us Diane Cui MD LAB BLOOD ORDERABLES Final R esult Performing Organization Address City/[facility]/ZIP Co de Phone Number [facility] [address] [place] [address], [place] [phone] * Folate (04/26/2024 8:09 AM EST) Folate 12.5 >=3.0 ng/ml LAB CHEMISTRY METHOD 04/26/2024 3:10 PM EST [facility] Blood Venous blood specimen / Unknown Venipuncture / Unknown 04/26/2024 8:09 AM EST 04/26/2024 8:12 AM EST Diane Cui MD LAB BLOOD ORDERABLES Final R esult [facility] [address] [place] [address], [place] [phone] * (ABNORMAL) Comprehensive metabolic panel (04/26/2024 8:09 AM EST) Sodium 140 135 - 145 mmol/L LAB CHEMISTRY METHOD 04/26/2024 9:05 AM EST [facility] Potassium 3.7 3.5 - 5.1 mmol/L LAB CHEMISTRY METHOD 04/26/2024 9:05 AM EST [facility] Chloride 105 98 - 107 mmol/L LAB CHEMISTRY METHOD 04/26/2024 9:05 AM EST [facility] CO2 28 24 - 32 mmol/L LAB CHEMISTRY METHOD 04/26/2024 9:05 AM EST [facility] Anion Gap 7 5 - 14 LAB CHEMISTRY METHOD 04/26/2024 9:05 AM [facility] Glucose 90 70 - 99 mg/dL LAB CHEMISTRY METHOD 04/26/2024 9:05 AM [facility] BUN 24(H) 7 - 17 mg/dL LAB CHEMISTRY METHOD 04/26/2024 9:05 AM [facility] Creatinine 0.98 0.50 - 1.00 mg/dL LAB CHEMISTRY METHOD 04/26/2024 9:05 AM [facility] eGFR 61 >=60 mL/min/1. 73m2 LAB CHEMISTRY METHOD 04/26/2024 9:05 AM [facility] Comment:Calculation based on the??Chronic Kidney Disease Epidemiology Collaboration (CKD-EPI) equation refit??without adjustment for race. BUN/Creatinine Ratio 24.5(H) 12.0 - 20.0 LAB CHEMISTRY METHOD 04/26/2024 9:05 AM [facility] Calcium 9.6 8.4 - 10.2 mg/dL LAB CHEMISTRY METHOD 04/26/2024 9:05 AM [facility] AST (SGOT) 15 5 - 40 unit/L LAB CHEMISTRY METHOD 04/26/2024 9:05 AM [facility] ALT (SGPT) 17 7 - 52 unit/L LAB CHEMISTRY METHOD 04/26/2024 9:05 AM [facility] Alkaline Phosphatase 56 34 - 104 unit/L LAB CHEMISTRY METHOD 04/26/2024 9:05 AM [facility] Total Protein 6.8 6.4 - 8.5 g/dL LAB CHEMISTRY METHOD 04/26/2024 9:05 AM [facility] Albumin 4.4 3.5 - 5.0 g/dL LAB CHEMISTRY METHOD 04/26/2024 9:05 AM [facility] Total Bilirubin 0.6 0.3 - 1.0 mg/dL LAB CHEMISTRY METHOD 04/26/2024 9:05 AM EST [facility] Blood Venous blood specimen / Unknown Venipuncture / Unknown 04/26/2024 8:09 AM EST 04/26/2024 8:12 AM EST Diane Cui MD LAB BLOOD ORDERABLES Final R esult [facility] [address] [place] [address], [place] [phone] * ERIKA DEXA AXIAL SKELETON (08/13/2020 5:28 PM EDT) Anatomical Region Laterality Modality Mammography 08/13/2020 1:30 PM EDT Narrative 08/13/2020 5:28 PM EDT [facility] Diagnostic Imaging Department [address] [place] [address] Patient: ??SUNSHINE BRENNER ?/Age/Sex: 1950 - 70 - F Unit#: ??[id number] ? Location/Status: ??SPDIMAM/REG CLI ? Mnemonic/Ordering Site: ??MAMDEXAAX/SPMAM Ordering Physician: ??DIANE CUI MD Erika Dexa Axial Skeleton - 08/13/20 070 HISTORY: ??The patient is a 70-year-old postmenopausal female with history of adult bone fracture clinical concern for metabolic bone disease. FINDINGS: ??Dual energy x-ray absorptiometry of the lumbar spine and femurs is performed. The mean bone mineral density at L2-L4 is 1.24 gm/cm2. This yields a T-score of 0.3 and a Z-score of 1.6 which is diagnostic of normal bone mineral density. The mean bone mineral density of the femurs bilaterally is 1.074 gm/cm2. ??This yields a T-score of 0.5 and a Z-score of 1.6 which is diagnostic of normal bone mineral density. IMPRESSION: 1. Normal bone mineral density.. 2. FRAX analysis yields a 10-year probability of major osteoporotic fracture of 13.2% and a 10-year probability of hip fracture of 1%. Code 36818 Dictating Physician: ??FLO OCHOA MD Electronically Signed by: ??FLO OCHOA MD Dic Date/Time: ??08/13/201726 Sign date/Time: ??08/13/201727 Procedure Note Sade Ochoa MD - 02/24/2022 [facility] Diagnostic Imaging Department [address] [place] [address] Patient: SUNSHINE BRENNERO.B./Age/Sex: 1950 - 70 - F Unit#: [id number] Location/Status: [facility]/REG CLI [facility] Ordering Physician: DIANE CUI MD [facility] Dexa Axial Skeleton - 08/13/20 9660 HISTORY: The patient is a 70-year-old postmenopausal female with historyof adult bone fracture clinical concern for metabolic bone disease. FINDINGS: Dual energy x-ray absorptiometry of the lumbar spine and femursis performed. The mean bone mineral density at L2-L4 is 1.24 gm/cm2. Thisyields a T-score of 0.3 and a Z-score of 1.6 which is diagnostic of normal bonemineral density. The mean bone mineral density of the femurs bilaterally is 1.074 gm/cm2.This yields a T-score of 0.5 and a Z-score of 1.6 which is diagnostic of normalbone mineral density. IMPRESSION: 1. Normal bone mineral density.. 2. FRAX analysis yields a 10-year probability of major osteoporoticfracture of 13.2% and a 10-year probability of hip fracture of 1%. Code 46934 Dictating Physician: FLO OCHOA MD Electronically Signed by: FLO OCHOA MD Dic Date/Time: 08/13/201726 Sign date/Time: 08/13/20 172 us Diane Cui MD IMG BI PROCEDURES Final Resu lt * [facility] SCREENING DIGITAL (08/13/2020 2:28 PM EDT) Anatomical Region Laterality Modality Mammography 08/13/2020 1:32 PM EDT Narrative 08/13/2020 2:28 PM EDT [facility] Diagnostic Imaging Department [address] [place] [address] [id number] Patient: ??SUNSHINE BRENNER ?/Age/Sex: 1950 - - Unit#: ??[id number] ? Location/Status: ??SPDIMAM/REG CLI ? Mnemonic/Ordering Site: ??DIGSC/SPMAM Ordering Physician: ??DIANE CUI MD Erika Screening Digital - 08/13/20 - 1355 INDICATION: SCREENING COMPARISON: [facility] mammograms dating back to ?? 02/04/2011 TECHNIQUE: CC and MLO views of the breasts were obtained, using full field digital mammography with 3D tomosynthesis views in the MLO projection. Computer aided detection with the [employer] 7.2-H was employed. FINDINGS: The breasts are almost entirely composed of fat. ??Reduction mammoplasty changes bilaterally. No suspicious masses, suspicious microcalcifications, or areas of architectural distortion are identified. ??There are no secondary signs of breast malignancy. IMPRESSION: ??No specific mammographic evidence of breast malignancy. Lack of an imaging correlate should not deter or delay biopsy of a clinically significant palpable finding. BI-RADS ??- Category 2 - Benign finding 3342F, 7025F Annual screening mammography is recommended. Patient entered into a reminder system with a target date for the next mammogram. (G0202 / [id number]) , ??[id number] Dictating Physician: ??ROXY VARELA MD Electronically Signed by: ??ROXY VARELA MD Dic Date/Time: ??08/13/20 1424 Sign date/Time: ??08/13/20 1428 Procedure Note Roxy Varela MD - 02/24/2022 [facility] Diagnostic Imaging Department [address] [place] [address] Patient: JORDINSUNSHINE /Age/Sex: 1950 - 70 - F Unit#: [id number] Location/Status: SPDIMAM/REG CLI Mnemonic/Ordering Site: [facility] Ordering Physician: DIANE CUI MD Erika Screening Digital - 08/13/20 - 2585 INDICATION: SCREENING COMPARISON: [facility] mammograms dating back to 02/04/2011 TECHNIQUE: CC and MLO views of the breasts were obtained, using full field digital mammography with 3D tomosynthesis views in the MLO projection. Computer aided detection with the [employer] 7.2-H was employed. FINDINGS: The breasts are almost entirely composed of fat. Reduction mammoplastychanges bilaterally. No suspicious masses, suspicious microcalcifications, or areas ofarchitectural distortion are identified. There are no secondary signs of breastmalignancy. IMPRESSION: No specific mammographic evidence of breast malignancy. Lack of an imaging correlate should not deter or delay biopsy of aclinically significant palpable finding. BI-RADS - Category 2 - Benign finding 3342F, 7025F Annual screening mammography is recommended. Patient entered into a reminder system with a target date for the next mammogram. G0202 / [id number] , [id number] Dictating Physician: ROXY VARELA MD Electronically Signed by: ROXY VARELA MD Dic Date/Time: 08/13/20 1427 Sign date/Time: 08/13/20 1420 Diane Cui MD IMG BI PROCEDURES Final Resu lt from Last 3 Months or Most Recently Relevant to Health Maintenance Insurance [employer] MED[employer]ARE Care Teams Telecom Analyst Relationship Specialty Start Date End Date Diane Cui MD [address] [place] [address] Dr [address] [place] PCP - General Internal Medicine 12/04/20
--- OUTSIDE RECORDS SUMMARY | 2024-04-27 12:55 | XMS_ITS | Clinical Summary ---
Author Organization [facility] Address [address] [place] [address] Care Team Providers Care Mill Worker Name Role Phone Steven Casas MD Primary Care Provider [phone] Allergies Active Allergy Reactions Criticality Noted Date Comments Penicillins 07/17/2021 Medications Medication Sig Dispensed Refills Start Date End Date Status LORazepam (ATIVAN) 0.5 MG tablet TAKE 1 TABLET BY MOUTH ONCE DAILY NEEDED FOR ANXIETY FOR 30 DAYS 0 06/05/2021 Active oxyCODONE (ROXICODONE) 5 MG immediate release tablet TAKE 1 TABLET BY MOUTH TWO TO THREE TIMES DAILY NEEDED FOR PAIN 0 2021 Active Scopolamine (TRANSDERM-SCOP) 1 MG/3DAYS APPLY 1 PATCH TOPICALLY EVERY THREE DAYS NEEDED FOR MOTION SICKNESS 0 06/04/2021 Active methylphenidate (RITALIN) 10 MG tablet Take 10 mg by mouth 2 (two) times a day. 0 05/06/2021 Active buPROPion (WELLBUTRIN) 100 MG tablet Take 100 mg by mouth 2 (two) times a day. 0 Active Social History Tobacco Use Types Packs/Day Years Used Date Smoking Tobacco: Never Smokeless Tobacco: Never Sex and Gender Information Value Date Recorded Sex Assigned at Female 12/04/2020 7:51 AM EDT Gender Identity Not on file Sexual Orientation Not on file Job Start Date Occupation Industry Not on file Not on file Not on file Last Filed Vital Signs Vital Sign Reading Time Taken Comments Blood Pressure 152/80 07/17/2021 12:40 PM EDT Pulse 70 07/17/2021 12:40 PM EDT Temperature 37.1 ??C (98.7 ??F) 07/17/2021 12:40 PM E DT Respiratory Rate 18 07/17/2021 12:40 PM EDT Oxygen Saturation 100% 07/17/2021 12:40 PM EDT Inhaled Oxygen Concentration - - Weight 73 kg (160 lb 15 oz) 07/17/2021 12:40 PM EDT Height 172.7 cm (5' 8 ) 07/17/2021 12:40 PM EDT Body Mass Index 24.47 07/17/2021 12:40 PM EDT Plan of Treatment Health Maintenance Due Date Last Done Comments Hepatitis C Screening 1950 Depression Screening 1963 Preventative Health Evaluation 07/14/1969 DTap / Tdap / Td (1 - Tdap) 07/14/1970 Colon Cancer Screening (Colonoscopy) 07/14/1996 Breast Cancer Screening (Mammogram) 07/14/2001 Shingrix-Zoster Vaccine (1 of 2) 07/14/2001 Fall Risk Assessment 07/14/2016 Osteoporosis Screening (DEXA Scan) 07/14/2016 Pneumococcal Vaccine (1 of 1 - PCV) 07/14/2016 COVID-19 Vaccine (2 - 2023-2 5 season) 2023 12/05/2020 Influenza Vaccine (#1) 2023 RSV Adult > 60+ Yrs or Pregn ant (1 - 1-dose 75+ series) 07/14/2026 Hepatitis B Vaccines Aged Out No long er eligible based on patient's age to complete this topic RSV Ped < 20 months Aged Out No longe r eligible based on patient's age to complete this topic Care Teams Mill Worker Relationship Specialty Start Date End Date Steven Casas MD [address] [place] [address] [address] [place] [id number] PCP - General Internal Medicine 12/04/20
--- OUTSIDE RECORDS SUMMARY | 2024-04-27 12:55 | XMS_ITS ---
Author Name [facility] Organization Unknown Results Test Name/Text Value Interpretation Date Range Source Est. average glucose Bld gHb Est-mCnc 117mg/dL Normal [id number] [facility] HbA1c MFr Bld 5.7% Above high normal [id number] - 5.7 [facility] 25(OH)D3 SerPl-mCnc 29.5ng/mL Below low normal [id number] 30 - 100 [facility] Folate SerPl-mCnc 12.5ng/ml Normal [id number] - [facility] HDLc SerPl-mCnc 95mg/dL Above high normal [id number] 33 - 92 [facility] Trigl SerPl-mCnc 56mg/dL Normal [id number] - 150 [facility] Cholest SerPl-mCnc 195mg/dL Normal [id number] 0 - 200 [facility] VLDLc SerPl Calc-mCnc 11.2mg/dL Normal [id number] [facility] LDLc SerPl Calc-mCnc 89mg/dL Normal [id number] 50 - 130 [facility] TSH SerPl DL<=0.005 mIU/L-aCnc 1.93mcIU/mL Normal [id number] 0.45 - 5.33 [facility] Glucose SerPl-mCnc 90mg/dL Normal [id number] 70 - 99 [facility] Calcium SerPl-mCnc 9.6mg/dL Normal [id number] 8.4 - 10 .2 [facility] Sodium SerPl-sCnc 140mmol/L Normal [id number] 135 - 145 [facility] BUN SerPl-mCnc 24mg/dL Above high normal [id number] 7 - 17 [facility] ALP SerPl-cCnc 56unit/L Normal [id number] 34 - 104 [facility] Anion Gap SerPl-sCnc 7 Normal [id number] 5 - 14 [facility] Albumin SerPl-mCnc 4.4g/dL Normal [id number] 3.5 - 5 [facility] ALT SerPl-cCnc 17unit/L Normal [id number] 7 - 52 [facility] eGFRcr SerPlBld CKD-EPI 2020 61mL/min/1.73m2 Normal [id number] - [facility] Creat SerPl-mCnc 0.98mg/dL Normal [id number] 0.5 - 1 [facility] AST SerPl-cCnc 15unit/L Normal 5 - 40 [facility] CO2 SerPl-sCnc 28mmol/L Normal 24 - 32 [facility] BUN/Creat SerPl 24.5 Above high normal [id number] 12 - 20 [facility] Bilirub SerPl-mCnc 0.6mg/dL Normal 0.3 - 1 [facility] Chloride SerPl-sCnc 105mmol/L Normal 98 - 107 [facility] Potassium SerPl-sCnc 3.7mmol/L Normal [id number] 3.5 - 5.1 [facility] Prot SerPl-mCnc 6.8g/dL Normal [id number] 6.4 - 8.5 [facility] Bacteria #/area UrnS HPF Trace Abnormal - [facility] WBC clumps #/area UrnS HPF Rare Abnormal - [facility] WBC #/area UrnS HPF 6/HPF Above high normal [id number] 0 - 5 [facility] RBC #/area UrnS HPF 3/HPF Normal 0 - 3 [facility] Squamous Epithelial, Urine 1/HPF Normal 0 - 5 [facility] Clarity Ur Clear Normal - [facility] Prot Ur Strip-mCnc Negative Normal - [facility] Glucose Ur Ql Negative Normal - [facility] Color Ur Yellow Normal - [facility] Hgb Ur Ql Small Abnormal [id number] - [facility] pH Ur 5.5pH Normal [id number] 5 - 8 [facility] Leukocyte esterase Ur Ql Strip Trace Abnormal [id number] - [facility] Nitrite Ur Ql Negative Normal [id number] - [facility] Ketones Ur-mCnc Negative Normal [id number] - [facility] Sp Gr Ur 1.025 Normal [id number] 1.005 - 1.03 [facility] MCV RBC Auto 96.1FL Normal [id number] 78 - 100 [facility] Lymphocytes # Bld Auto 1.68K/mcL Normal [id number] 1 - 3.2 [facility] WBC # Bld Auto 4.6K/mcL Normal [id number] 4 - 10.5 [facility] Monocytes/leuk NFr Bld Auto 6.5% Normal [id number] 2 - 12 [facility] Platelet # Bld Auto 257K/mcL Normal [id number] 150 - 450 [facility] PMV Bld Auto 9.5FL Normal [id number] 7.4 - 11.4 [facility] MCH RBC Qn Auto 31.1pcg Normal [id number] 25 - 33 [facility] Eosinophil # Bld Auto 0.09K/mcL Normal [id number] 0 - 0.5 [facility] Neutrophils/leuk NFr Bld Auto 54.5% Normal [id number] 44 - 74 [facility] RBC # Bld Auto 4.12M/mcL Below low normal [id number] 4.2 - 5.4 [facility] Monocytes # Bld Auto 0.3K/mcL Normal 0 - 0.8 [facility] RDW RBC Auto-Rto 12.7% Normal 12.1 - 16. 2 [facility] Lymphocytes/leuk NFr Bld Auto 36.3% Normal 20 - 48 [facility] Eosinophil/leuk NFr Bld Auto 1.9% Normal 0 - 6 [facility] Basophils # Bld Auto 0.03K/mcL Normal 0 - 0.2 [facility] Neutrophils # Bld Auto 2.52K/mcL Normal 1.8 - 7.8 [facility] Hct VFr Bld Auto 39.6% Normal 37 - 47 [facility] Hgb Bld-mCnc 12.8g/dL Normal 12.5 - 16 [facility] MCHC RBC Auto-mCnc 32.3g/dL Normal 32 - 36 [facility] Basophils/leuk NFr Bld Auto 0.4% Normal 0 - 2 [facility] 25(OH)D3+25(OH)D2 SerPl IA-mCnc 28ng/mL Below low normal [id number] 30 - 100 [facility] LDLc SerPl Calc-mCnc 89mg/dL Normal 50 - 130 [facility] TRIGL SERPL-MCNC 87mg/dL Normal [id number] - 150 [facility] CHOLEST SERPL-MCNC 182mg/dL Normal 0 - 200 [facility] HDLC SERPL-MCNC 76mg/dL Normal 33 - 92 [facility] Hgb A1c MFr Bld HPLC 5.5% Normal [id number] - 5.7 [facility] TSH SerPl DL<=0.005 mIU/L-aCnc 2.58uIU/mL Normal [id number] 0.45 - 5.33 [facility] CALCIUM SERPL MCNC 9.3mg/dL Normal 8.4 - 10 .2 [facility] ANION GAP SERPL SCNC 5mmol/L Normal 5 - 14 [facility] Glomerular filtration rate/1.73 sq M. predicted 60 Below low normal 60 - [facility] HCO3 SER SCNC 29mmol/L Normal 24 - 32 [facility] AST SERPL CCNC 15U/L Normal 5 - 40 [facility] BUN SERPL MCNC 24mg/dL Above high normal [id number] 7 - 17 [facility] CHLORIDE SERPL SCNC 107mmol/L Normal [id number] 98 - 107 [facility] ALBUMIN SERPL BCG MCNC 4.3g/dL Normal [id number] 3.5 - 5 [facility] ALP SERPL-CCNC 56U/L Normal [id number] 34 - 104 [facility] ALT SERPL CCNC 24U/L Normal [id number] 7 - 52 [facility] CREAT SERPL MCNC 1mg/dL Normal [id number] 0.5 - 1 [facility] SODIUM SERPL SCNC 141mmol/L Normal [id number] 135 - 145 [facility] PROT SERPL MCNC 6.7g/dL Normal [id number] 6.4 - 8.5 [facility] BILIRUB SERPL MCNC 0.6mg/dL Normal [id number] 0.3 - 1 [facility] GLUCOSE P FAST SERPL MCNC 101mg/dL Above high normal [id number] 70 - 99 [facility] POTASSIUM SERPL SCNC 4.2mmol/L Normal [id number] 3.5 - 5.1 [facility] Clarity Ur Refract.auto CLEAR Normal [id number] [facility] Prot Ur Ql Strip.auto NEGATIVE Normal [id number] - [facility] Glucose Ur Ql Strip.auto NEGATIVE Normal [id number] - [facility] Nitrite Ur Ql Strip.auto NEGATIVE Normal [id number] - [facility] Sp Gr Ur Strip.auto >1.030 Above high normal [id number] 1.005 - 1.03 [facility] Hgb Ur Ql Strip.auto SMALL Abnormal [id number] - [facility] Ketones Ur Ql Strip.auto NEGATIVE Normal [id number] - [facility] Leukocyte esterase Ur Ql Strip.auto TRACE Abnormal [id number] - [facility] pH Ur Strip.auto 5.5 Normal [id number] 4.5 - 8 [facility] SQUAMOUS NO./AREA URNS LPF 5/LPF Normal [id number] 0 - 5 [facility] RBC number/area UrnS Auto 3/HPF Normal [id number] 0 - 3 [facility] WBC number/area UrnS Auto 3/HPF Normal [id number] 0 - 5 [facility] PLATELET NO. BLD AUTO 251K/uL Normal [id number] 150 - 450 [facility] RBC NO. BLD AUTO 4.02M/uL Below low normal [id number] 4.2 - 5.4 [facility] NUCLEATED RBC 0% Normal [id number] 0 - 1 [facility] LYMPHOCYTES NO. BLD AUTO 2.2K/uL Normal [id number] 1 - 3.2 [facility] EOSINOPHIL NO. BLD AUTO 0.2K/uL Normal [id number] 0 - 0.5 [facility] MCH RBC QN AUTO 31.6pg Normal [id number] 25 - 33 [facility] MCHC RBC AUTO MCNC 32.9g/dL Normal [id number] 32 - 36 [facility] MONOCYTES NFR BLD AUTO 6.5% Normal 2 - 12 [facility] IMMATURE GRANULOCYTE, ABSOLUTE 0.01k/uL Normal [id number] - 0.1 [facility] LYMPHOCYTES NFR BLD AUTO 47% Normal 20 - 48 [facility] EOSINOPHIL NFR BLD AUTO 4.2% Normal 0 - 6 [facility] HGB BLD MCNC 12.7g/dL Normal [id number] 12.5 - 16 [facility] NEUTROPHILS NO. BLD AUTO 2K/uL Normal [id number] 1.8 - 7.8 [facility] WBC NO. BLD AUTO 4.8K/uL Normal [id number] 4 - 10.5 [facility] BASOPHILS NFR BLD AUTO 0.8% Normal 0 - 2 [facility] MONOCYTES NO. BLD AUTO 0.3K/uL Normal [id number] 0 - 0.8 [facility] MCV RBC AUTO 96fL Normal [id number] 78 - 100 [facility] NEUTROPHILS NFR BLD AUTO 41.3% Below low normal [id number] 44 - 74 [facility] IMMATURE GRANULOCYTE, PERCENT 0.2% Normal 0 - 1 [facility] BASOPHILS IN BLOOD BY AUTOMATED COUNT 0K/uL Normal [id number] 0 - 0.2 [facility] PMV BLD AUTO 9.6fL Normal [id number] 7.4 - 11.4 [facility] RDW RBC AUTO RTO 12.7% Normal [id number] 12.1 - 16. 2 [facility] HCT VFR BLD AUTO 38.6% Normal [id number] 37 - 47 [facility] SPECIMEN SOURCE XXX URINE CLEAN CATCH Normal [id number] [facility] History of Medication Use Medication Directions Dispensed Refills Start Date End Date Stat prednisone 10 mg tablet Take 4 tablet(s) EVERY DAY by oral route for 2 days, then decrease by 1 pill every 2 days until gone (4,4,3,3,2,2,1,1) 06/14/2023 active lorazepam 0.5 mg tablet TAKE 1 TABLET BY MOUTH ONCE DAILY NEEDED FOR ANXIETY active LORazepam (ATIVAN) 0.5 MG tablet TAKE 1 TABLET BY MOUTH ONCE DAILY NEEDED FOR ANXIETY FOR 30 DAYS 06/05/2021 active methylphenidate (RITALIN) 10 MG tablet Take 10 mg by mouth 2 (two) times a day. 05/06/2021 active carisoprodol 350 mg tablet TAKE 1 TABLET BY MOUTH THREE TIMES DAILY NEEDED FOR MUSCLE SPASM FOR 10 DAYS active methylphenidate 10 mg tablet TAKE 1 TABLET BY MOUTH TWICE DAILY NEEDED FOR ATTENTION DEFICIT active Allergies Allergen Reaction Severity Comment Documented Date Source Statu s PENICILLINS [facility] Problems Problem Status Onset Date Problem Type Date of Resolution Source Neck pain active 2023-07-19 ProblemAct [facility] Osteoarthritis of left knee joint active 2024-03-28 ProblemAct [facility] Cervical spondylosis active 2023-06-14 ProblemAct [facility] Dysuria active EncounterDiagnosisAct [facility] Pure hypercholesterolemia , unspecified active EncounterDiagnosisAct [facility] Fibromyalgia active EncounterDiagnosisAct [facility] Vitamin D deficiency, unspecified active EncounterDiagnosisAct [facility] Anemia, unspecified active EncounterDiagnosisAc t [facility] Impaired fasting glucose active EncounterDiagnosisAct [facility] H
== END 2024-04-27 12:28 | disposition home or self-care (01) ==
PROVIDERS: PCP Internal Medicine; Visit Provider Internal Medicine
DX: M79.7 Fibromyalgia (principal); M19.041 Primary osteoarthritis, right hand; M19.042 Primary osteoarthritis, left hand; D64.9 Anemia, unspecified; E55.9 Vitamin D deficiency, unspecified; R73.01 Impaired fasting glucose; F41.9 Anxiety disorder, unspecified; F33.9 Major depressive disorder, recurrent, unspecified; F98.8 Other specified behavioral and emotional disorders with onset usually occurring in childhood and adolescence; E66.3 Overweight; Z12.31 Encounter for screening mammogram for malignant neoplasm of breast; Z13.820 Encounter for screening for osteoporosis

== ENCOUNTER → 2024-04-27 11:35 | Outpatient (BNVA) | payer OTHER, SELFPAY | PROVIDERS: PCP Internal Medicine; Visit Provider Internal Medicine | DX: M79.7 Fibromyalgia (principal); M19.041 Primary osteoarthritis, right hand; M19.042 Primary osteoarthritis, left hand; D64.9 Anemia, unspecified; E55.9 Vitamin D deficiency, unspecified; R73.01 Impaired fasting glucose; F41.9 Anxiety disorder, unspecified; F33.9 Major depressive disorder, recurrent, unspecified; F98.8 Other specified behavioral and emotional disorders with onset usually occurring in childhood and adolescence; E66.3 Overweight; Z79.899 Other long term (current) drug therapy | CPT/HCPCS: 96127 ==

== ENCOUNTER 2024-06-21 15:46 | Outpatient (AMB) | payer OTHER, SELFPAY ==
--- NOTE | 2024-06-21 15:49 | A.OFFPC_ITS ---
Vital Signs 06/21/24 15:51 Height 5 ft 8 in Weight 168 lb 2 oz BMI 25.6 BP 120/64 Blood Pressure Location Rt brachial Position Sitting Pulse 70 Pulse Source Pulse Oximeter Temp 96.8 F Temp Source Temporal Artery Scan Pulse Oximetry (%) 96 Oxygen Delivery Method Room Air Intake Visit Reasons: [facility] 04/27 heart issues Intake Note: Patient is here for hospital discharge follow up. Patient was discharged from [facility] on 04/27/24. Technical Sourcing Recruiter Required: No Costume Mistress: Not Required per policy Accompanied by: Self / Same As Patient Allergies penicillin V Allergy (Mild, Verified 06/21/24 15:51) Rash nabumetone Adverse Reaction (Intermediate, Verified 06/21/24 15:51) tinnitus Medication List - Last Reconciled 06/21/24 by DEBBI Sargent acetaminophen ER (Tylenol Arthritis Pain) 650 mg PO Q8H PRN bupropion HCl 100 mg PO .QD 90 days carisoprodol 350 mg PO TID PRN 10 days cholecalciferol (vitamin D3) 50 mcg PO DAILY 90 days lorazepam 0.5 mg PO DAILY PRN 30 days methylphenidate HCl 10 mg PO BID PRN 30 days naproxen 500 mg PO BID PRN 10 days oxycodone 5 mg PO .2 to 3 times a day PRN 28 days scopolamine base (Transderm-Scop) 1 patch transdermal Q3D PRN tramadol 50 mg PO .3 to 4 times a day PRN 30 days Tobacco use date assessed: 06/21/24 Fall risk assessment: No Falls in past year Last assessed Fall Risk: 06/21/24 Dental Screening Dental Screen Date: 04/27/24 HPI [facility] 04/27 heart issues HPI Details The patient is a 73-year-old female presenting with follow-up for post [facility] visit related to new onset of AFIB with RVR. The patient chief complaints was heart palpitation. Patient reports that she felt palpitations before but not to that extent, prompting her to go to the ER. Reports that she was playing bingo with her daughter and felt the palpitations that persisted, so she became concern. The patient also reported having two glasses of wine prior to this happening. The patient was placed on Cardizem drip, amiodarone push and drip and she later converted to normal sinus rhythm. Then the following morning the patient was started on Eliquis that resulted in hematuria. The patient was discharged with the apixaban and Cardizem, in response to low blood pressure and hematuria, the patient has self discontinued the medications. She has a significant history of fibromyalgia and chronic leg pain, managed with occasional oxycodone, and previously had well-controlled blood pressure through physical activity. Before the arrhythmia episode, she experienced increased stress and dehydration. Diagnostic evaluation conducted post-episode, including a stress test and echocardiogram, showed no evidence of atrial fibrillation or abnormalities. Her serum blood pressure is currently stable without pharmacological intervention. The patient's urinary symptoms presumed to indicate an infection showed mixed urogenital scotty without symptoms, and she opted against taking Cipro due to the risk of arrhythmia. The patient has recently adopted lifestyle changes, including eliminating caffeine and alcohol, and has increased her water intake. She continues with supplemental vitamins like magnesium which she perceives to be beneficial for cardiac health. The patient is scheduled for continued cardiac evaluation in August, with intent to communicate lifestyle adjustments and medication changes to her news content specialist. [facility] Medical History Overweight (BMI 25.0-29.9) Vitamin D deficiency Menopause Primary osteoarthritis of hands, bilateral Attention deficit disorder (ADD) Atypical squamous cells of undetermined significance (ASC-US) on cervical Pap smear (~2003) Allergic rhinitis Osteoarthritis Anxiety Depression Fibromyalgia Surgical History Hx of colonoscopy (~06/2022) History of breast lift Family History Father Stroke Mother Cervical cancer Uterine cancer Hypertension Maternal Grandmother Stroke Afib Maternal Grandfather Alcohol abuse Other Substance abuse Social History Housing: House Alcohol intake: current Alcohol intake frequency: a few times a week Patient Tobacco Use Status: Never used Tobacco e-Cigarette/Vaping Use: Never Used Second Hand Smoke Exposure: Yes service: No Current occupational status: retired Cognitive needs: No Hearing needs: No Vision needs: Yes (Glasses) Questionnaire Thrive Questionnaire Date Thrive assessed: 04/27/24 I am a: Patient What is your living situation today?: I have a steady place to live Within the past 12 months, did the food you bought not last and you didn't have the money to get more?: Never true Within the past 12 months, did you worry whether your food would run out before you got money to buy more?: Never true Do you have trouble paying for medicines?: No Do you have trouble getting transportation to medical appointments?: No Do you have trouble paying your heating and electricity bill?: No Do you have trouble taking care of your child, family member or friend?: No Do you have trouble with day-to-day activities such as bathing, preparing meals, shopping, managing finances, etc.?: No Are you currently unemployed and looking for a job?: No Are you interested in more education?: No Please select the resources that you would like help with: None Currently or been in a relationship where the following occur: No concerns reported THRIVE Score: 0 BELLA-7 AMB Questionnaire BELLA-7 Date BELLA - 7 assessed: 04/27/24 Source: Developed by Drs. Garret Shaikh, Gaye Levin, Fredy Davis and colleagues, with an educational jonathan from [employer]. Review of Systems Const Denies headache(s) Eyes Denies loss of vision ENT Denies vertigo, Denies dizziness, Denies headache(s) and Denies sore throat Card Denies chest pain, Denies leg edema and Denies lightheadedness Resp Denies cough, Denies hemoptysis and Denies wheezing GI Denies abdominal pain, Denies melena, Denies constipation, Denies diarrhea and Denies vomiting Denies urinary frequency, Denies dysuria and Denies urinary urgency Musc Denies arthralgias, Denies joint swelling, Denies numbness and Denies tingling Neuro Denies Abnormal speech present, Denies behavioral changes, Denies vertigo, Denies dizziness, Denies headache(s), Denies loss of vision, Denies memory loss, Denies numbness and Denies tingling Psych Denies anxiety, Denies behavioral changes, Denies depression, Denies memory loss and Denies panic attacks Hernando/Lymph Denies easy bleeding and Denies easy bruising Aller/Immun Denies wheezing Physical exam (Primary Care) Vital Signs: Last Vital Signs Temp 96.8 F 06/21/24 15:51 Pulse 70 06/21/24 15:51 BP 120/64 06/21/24 15:51 Pulse Ox 96 06/21/24 15:51 Oxygen Delivery Method Room Air 06/21/24 15:51 BMI result Body Mass Index 25.6 Tobacco/Smoking Status: Tobacco use Status Tobacco use date assessed 06/21/24 06/21/24 15:58 Patient Tobacco Use Status Never used Tobacco 06/21/24 15:58 e-Cigarette/Vaping Use Never Used 06/21/24 15:58 Thrive Assessment: Date of Thrive Assessment Date Thrive assessed 04/27/24 06/21/24 15:58 Currently or been in a relationship where the following occur: No concerns reported Const General: healthy appearing, no acute distress, alert and awake Nutritional Appearance: well nourished Orientation/consciousness: oriented to person, oriented to place and oriented to time HENMT Ears: external ears normal General nose exam: Normal external nose present Eyes Conjunctivae: conjunctivae normal Sclerae: sclerae normal Pupils: Equal, round and reactive pupils present Neck Neck: Yes no lymphadenopathy and Yes no JVD Thyroid: Thyroid normal Carotids: no bruits Resp Effort & Inspection: normal respiratory effort and not tachypneic Auscultation: no crackles, no rales, no rhonchi and no wheezes Cardio Rate: regular rate Rhythm: regular rhythm Heart sounds: no murmurs and normal S1 and S2 GI Palpation (GI): Soft to palpation, nontender, no hepatomegaly and no splenomegaly Auscultation: normal bowel sounds Skin General skin exam: no rashes or lesions noted and dry skin Neuro General: oriented to person, oriented to place and oriented to time Cranial nerves: Yes Equal, round and reactive pupils present Speech: No Abnormal speech present Gait exam (Neuro): Normal gait present Motor exam (neuro): no tremor noted Extrem Right upper extremity: full ROM Left upper extremity: full ROM Right lower extremity: full ROM; no edema Left lower extremity: full ROM; no edema Psych Mental Status: mental status grossly normal Speech and movement: Normal speech and movement present Affect: normal affect Attitude: cooperative Thought process: Normal thought process present Coding Level of Care Code Est Pt Level 4 (21602) Diagnoses Atrial fibrillation with RVR I48.91 Other microscopic hematuria R31.29 Hematuria type: other microscopic Bacteriuria R82.71 Time Spent (min) 41 Assessment & Plan Assessment & Plan (1) Atrial fibrillation with RVR: Code(s): I48.91 - Unspecified atrial fibrillation Category: Medical (2) Hematuria: Code(s): R31.9 - Hematuria, unspecified Category: Medical Qualifiers: Hematuria type: other microscopic Qualified Code(s): R31.29 - Other microscopic hematuria (3) Bacteriuria: Code(s): R82.71 - Bacteriuria Category: Medical Plan I provided guidance on arrhythmia management and emphasized communication with the patient's news content specialist to ensure adequate review of her medication changes and lifestyle adjustments. Her current blood pressure readings are stable without pharmacological intervention, and further antihypertensive treatment was not initiated. We recommended repeating a urine test to reassess any risks associated with prior hematuria and possible infection. Follow-up with cardiology in August will support ongoing monitoring and assessment. Patient was informed and verbally consented to the use of an ambient scribe for clinic note documentation during this visit. Orders: Orders UA CC w/rflx Micro + Cult 06/21/24 R82.71 - Bacteriuria Patient Instructions: - Continue monitoring your blood pressure and heart rate regularly. - Stay hydrated and avoid caffeinated and alcoholic beverages. - Follow up with your news content specialist, especially regarding any medication changes made. - Schedule and complete a repeat urinalysis as discussed. - Be alert for any new symptoms of arrhythmia or leg pain swelling, and seek immediate medical care if these occur. - Inform your healthcare provider of any changes in your condition or symptoms.
[2024-06-21 15:51] VITALS: BP 120/64; PULSE 70; TEMP 36; O2SAT 96; BMI 25.6
--- OUTSIDE RECORDS SUMMARY | 2024-06-21 18:07 | XMS_ITS | Clinical Summary ---
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 [facility] MCV 94.7 78.0 - 100.0 FL LAB HEMETOLOGY METHOD 04/29/2024 12:11 AM [facility] MCH 31.4 25.0 - 33.0 pcg LAB HEMETOLOGY METHOD 04/29/2024 12:11 AM [facility] MCHC 33.2 32.0 - 36.0 g/dL LAB HEMETOLOGY METHOD 04/29/2024 12:11 AM [facility] RDW 12.7 12.1 - 16.2 % LAB HEMETOLOGY METHOD 04/29/2024 12:11 AM [facility] Platelets 278 150 - 450 K/mcL LAB HEMETOLOGY METHOD 04/29/2024 12:11 AM [facility] MPV 9.4 7.4 - 11.4 FL LAB HEMETOLOGY METHOD 04/29/2024 12:11 AM [facility] Neutrophils Relative 50.5 44.0 - 74.0 % LAB HEMETOLOGY METHOD 04/29/2024 12:11 AM [facility] Lymphocytes Relative 39.4 20.0 - 48.0 % LAB HEMETOLOGY METHOD 04/29/2024 12:11 AM [facility] Monocytes Relative 7.4 2.0 - 12.0 % LAB HEMETOLOGY METHOD 04/29/2024 12:11 AM [facility] Eosinophils Relative 2.0 0.0 - 6.0 % LAB HEMETOLOGY METHOD 04/29/2024 12:11 AM [facility] Basophils Relative 0.5 0.0 - 2.0 % LAB HEMETOLOGY METHOD 04/29/2024 12:11 AM [facility] Neutrophils Absolute 3.10 1.80 - 7.80 K/mcL LAB HEMETOLOGY METHOD 04/29/2024 12:11 AM [facility] Lymphocytes Absolute 2.41 1.00 - 3.20 K/mcL LAB HEMETOLOGY METHOD 04/29/2024 12:11 AM [facility] Monocytes Absolute 0.45 0.00 - 0.80 K/mcL LAB HEMETOLOGY METHOD 04/29/2024 12:11 AM [facility] Eosinophils Absolute 0.12 0.00 - 0.50 K/mcL LAB HEMETOLOGY METHOD 04/29/2024 12:11 AM [facility] Basophils Absolute 0.03 0.00 - 0.20 K/[facility] LAB HEMETOLOGY METHOD 04/29/2024 12:11 AM EST [facility] Blood Venous blood specimen / Unknown Venipuncture / Unknown 04/29/2024 12:05 AM EST 04/29/2024 12:08 AM EST us Chema Yeager MD LAB BLOOD ORDERABLES Final Res ult [facility] [address] [place] [address], [place] [phone] * [facility] CRITICAL CARE 30-74 MINUTES (04/28/2024 11:05 PM EST) Narrative Chema Yeager MD - 04/28/2024 11:05 PM EST Chema Yeager MD ? 04/30/2024 ??5:36 AM Critical Care Performed by: Chema Yeager MD Authorized by: Chema Yeager MD ?? Critical care provider statement: ??Critical care time (minutes): ??30 ??Critical care time was exclusive of: ??Separately billable procedures and treating other patients ??Critical care was necessary to treat or prevent imminent or life-threatening deterioration of the following conditions: Atrial fibrillation with rapid ventricular rate. ??Critical care was time spent personally by me on the following activities: ??Blood draw for specimens, evaluation of patient's response to treatment, examination of patient, obtaining history from patient or surrogate, re-evaluation of patient's condition, pulse oximetry, ordering and review of radiographic studies, ordering and review of laboratory studies and ordering and performing treatments and interventions ??I assumed direction of critical care for this patient from another provider in my specialty: no ?Care discussed with: accepting provider at another facility ?? us Chema Yeager MD IN CLINIC/BEDSIDE ORDERABLES F inal Result * (ABNORMAL) Urinalysis with reflex microscopic and culture (04/26/2024 8:09 AM EST) Color, Urine Yellow Colorless, Yellow LAB URINALYSIS - AUTOMATED METHOD 04/26/2024 8:15 AM [facility] Clarity, Urine Clear Clear LAB URINALYSIS - AUTOMATED METHOD 04/26/2024 8:15 AM [facility] Specific [place] Urine 1.025 1.005 - 1.030 LAB URINALYSIS - AUTOMATED METHOD 04/26/2024 8:15 AM [facility] pH, Urine 5.5 5.0 - 8.0 pH LAB URINALYSIS - AUTOMATED METHOD 04/26/2024 8:15 AM [facility] Leukocytes, Urine Trace(A) Negative WBCs/mcL LAB URINALYSIS - AUTOMATED METHOD 04/26/2024 8:15 AM [facility] Nitrite, Urine Negative Negative LAB URINALYSIS - AUTOMATED METHOD 04/26/2024 8:15 AM [facility] Protein, Urine Negative Negative mg/dL LAB URINALYSIS - AUTOMATED METHOD 04/26/2024 8:15 AM [facility] Glucose, Urine Negative Negative mg/dL LAB URINALYSIS - AUTOMATED METHOD 04/26/2024 8:15 AM [facility] Ketones, Urine Negative Negative mg/dL LAB URINALYSIS - AUTOMATED METHOD 04/26/2024 8:15 AM [facility] Blood, Urine Small(A) Negative mg/dL LAB URINALYSIS - AUTOMATED METHOD 04/26/2024 8:15 AM [facility] Urine Urine specimen obtained by clean catch procedure / Unknown Non-blood Collection / Unknown 04/26/2024 8:09 AM EST 04/26/2024 8:12 AM EST us Diane Cui MD LAB URINE ORDERABLES Final R esult [facility] [address] [place] [address], [place] [phone] * (ABNORMAL) Urinalysis microscopic reflex urine culture (04/26/2024 8:09 AM EST) RBC, Urine 3 0 - 3 /HPF 04/26/2024 8:32 AM EST [facility] WBC, Urine 6(H) 0 - 5 /HPF 04/26/2024 8:32 AM EST [facility] Bacteria, Urine Trace(A) None /HPF 04/26/2024 8:32 AM EST [facility] Squamous Epithelial, Urine 1 0 - 5 /HPF 04/26/2024 8:32 AM EST [facility] WBC Clumps, Urine Rare(A) None /HPF 04/26/2024 8:32 AM EST [facility] Urine Urine specimen obtained by clean catch procedure / Unknown Non-blood Collection / Unknown 04/26/2024 8:09 AM EST 04/26/2024 8:12 AM EST Diane Ciu MD LAB URINE ORDERABLES Final R esult [facility] [address] [place] [address], [place] [phone] * (ABNORMAL) Lipid panel with reflex to direct LDL (04/26/2024 8:09 AM EST) Cholesterol 195 0 - 200 mg/dL LAB CHEMISTRY METHOD 04/26/2024 2:49 PM EST [facility] Triglycerides 56 <150 mg/dL LAB CHEMISTRY METHOD 04/26/2024 2:49 PM EST [facility] HDL 95(H) 33 - 92 mg/dL LAB CHEMISTRY METHOD 04/26/2024 2:49 PM EST [facility] LDL Calculated 89 50 - 130 mg/dL LAB CHEMISTRY METHOD 04/26/2024 2:49 PM EST [facility] VLDL Cholesterol Jose 11.2 mg/dL LAB CHEMISTRY METHOD 04/26/2024 2:49 PM EST [facility] Comment:No established refer ence range. Blood Venous blood specimen / Unknown Venipuncture / Unknown 04/26/2024 8:09 AM EST 04/26/2024 8:12 AM EST Diane Cui MD LAB BLOOD ORDERABLES Final R esult [facility] [address] [place] [address], [place] [phone] * Thyroid stimulating hormone with reflex free T4 (04/26/2024 8:09 AM EST) TSH 1.93 0.45 - 5.33 mcIU/mL LAB CHEMISTRY METHOD 04/26/2024 9:45 AM EST [facility] Blood Venous blood specimen / Unknown Venipuncture / Unknown 04/26/2024 8:09 AM EST 04/26/2024 8:12 AM EST Diane Cui MD LAB BLOOD ORDERABLES Final R esult [facility] [address] [place] [address], [place] [phone] * (ABNORMAL) Vitamin D 25 hydroxy (04/26/2024 8:09 AM EST) Vit D, 25-Hydroxy 29.5(L) 30.0 - 100.0 ng/mL LAB CHEMISTRY METHOD 04/26/2024 3:10 PM EST [facility] Blood Venous blood specimen / Unknown Venipuncture / Unknown 04/26/2024 8:09 AM EST 04/26/2024 8:12 AM EST Narrative [facility] - 04/26/2024 3:10 PM EST Vitamin D ?Reference Range ng/ml Deficiency ? <10 Insufficiency ??10-30 Sufficiency ?30-100 Toxicity ? >100 Diane Cui MD LAB BLOOD ORDERABLES Final R esult [facility] [address] [place] [address], [place] [phone] * (ABNORMAL) Hemoglobin A1c (04/26/2024 8:09 AM EST) Hemoglobin A1C 5.7(H) <5.7 % LAB CHEMISTRY METHOD 04/27/2024 6:44 AM EST [facility] Mean Bld Glu Estim. 117 mg/dL LAB CHEMISTRY METHOD 04/27/2024 6:44 AM EST [facility] Blood Venous blood specimen / Unknown Venipuncture / Unknown 04/26/2024 8:09 AM EST 04/26/2024 8:11 AM EST Narrative [facility] - 04/27/2024 6:44 AM EST ADA Guidelines: ?? Increased risk Diabetes Mellitus A1C 5.7 - 6.4% and Fasting Blood Glucose 100 - 125 mg/dl Diabetes Mellitus: A1C >6.5% and Fasting Blood Glucose >125 mg/dl us Diane Cui MD LAB BLOOD ORDERABLES Final R esult [facility] [address] [place] [address], [place] [phone] * Folate (04/26/2024 8:09 AM EST) Folate 12.5 >=3.0 ng/ml LAB CHEMISTRY METHOD 04/26/2024 3:10 PM EST [facility] Blood Venous blood specimen / Unknown Venipuncture / Unknown 04/26/2024 8:09 AM EST 04/26/2024 8:12 AM EST us Diane Cui MD LAB BLOOD ORDERABLES Final R esult [facility] [address] [place] [address], [place] [phone] * (ABNORMAL) Comprehensive metabolic panel (04/26/2024 8:09 AM EST) Sodium 140 135 - 145 mmol/L LAB CHEMISTRY METHOD 04/26/2024 9:05 AM [facility] Potassium 3.7 3.5 - 5.1 mmol/L LAB CHEMISTRY METHOD 04/26/2024 9:05 AM [facility] Chloride 105 98 - 107 mmol/L LAB CHEMISTRY METHOD 04/26/2024 9:05 AM [facility] CO2 28 24 - 32 mmol/L LAB CHEMISTRY METHOD 04/26/2024 9:05 AM [facility] Anion Gap 7 5 - 14 LAB CHEMISTRY METHOD 04/26/2024 9:05 AM [facility] Glucose 90 70 - 99 mg/dL LAB CHEMISTRY METHOD 04/26/2024 9:05 AM [facility] BUN 24(H) 7 - 17 mg/dL LAB CHEMISTRY METHOD 04/26/2024 9:05 AM [facility] Creatinine 0.98 0.50 - 1.00 mg/dL LAB CHEMISTRY METHOD 04/26/2024 9:05 AM [facility] eGFR 61 >=60 mL/min/1. 73m2 LAB CHEMISTRY METHOD 04/26/2024 9:05 AM [facility] Comment:Calculation based on the??Chronic Kidney Disease Epidemiology Collaboration (CKD-EPI) equation refit??without adjustment for race. BUN/Creatinine Ratio 24.5(H) 12.0 - 20.0 LAB CHEMISTRY METHOD 04/26/2024 9:05 AM [facility] Calcium 9.6 8.4 - 10.2 mg/dL LAB CHEMISTRY METHOD 04/26/2024 9:05 AM [facility] AST (SGOT) 15 5 - 40 unit/L LAB CHEMISTRY METHOD 04/26/2024 9:05 AM [facility] ALT (SGPT) 17 7 - 52 unit/L LAB CHEMISTRY METHOD 04/26/2024 9:05 AM [facility] Alkaline Phosphatase 56 34 - 104 unit/L LAB CHEMISTRY METHOD 04/26/2024 9:05 AM [facility] Total Protein 6.8 6.4 - 8.5 g/dL LAB CHEMISTRY METHOD 04/26/2024 9:05 AM [facility] Albumin 4.4 3.5 - 5.0 g/dL LAB CHEMISTRY METHOD 04/26/2024 9:05 AM [facility] Total Bilirubin 0.6 0.3 - 1.0 mg/dL LAB CHEMISTRY METHOD 04/26/2024 9:05 AM [facility] Blood Venous blood specimen / Unknown Venipuncture / Unknown 04/26/2024 8:09 AM EST 04/26/2024 8:12 AM EST us Diane Cui MD LAB BLOOD ORDERABLES Final R esult [facility] [address] [place] [address], [place] [phone] * ERIKA DEXA AXIAL SKELETON (08/13/2020 5:28 PM EDT) Anatomical Region Laterality Modality Mammography 08/13/2020 1:30 PM EDT Narrative 08/13/2020 5:28 PM EDT [facility] Diagnostic Imaging Department [address] [place] [address] Patient: ??SUNSHINE BRENNER ?/Age/Sex: 1950 - - Unit#: ??[id number] ? Location/Status: ??SPDIMAM/REG CLI ? Mnemonic/Ordering Site: ??MAMDEXAAX/SPMAM Ordering Physician: ??DIANE CUI MD [facility] Dexa Axial Skeleton - 08/13/20 - 0319 HISTORY: ??The patient is a 70-year-old postmenopausal [...] probability of hip fracture of 1%. Code 30016 Dictating Physician: ??FLO OCHOA MD Electronically Signed by: ??FLO OCHOA MD Dic Date/Time: ??08/13/201726 Sign date/Time: ??08/13/201727 Procedure Note Sade Ochoa MD - 02/24/2022 [facility] Diagnostic Imaging Department [address] [place] [address] Patient: SUNSHINE BRENNER Gualberto BlankenshipB./Age/Sex: 1950 - 70 - F Unit#: [id number] [facility] Ordering Physician: DIANE CUI MD [facility] Dexa Axial Skeleton - 08/13/20 2946 HISTORY: The patient is a 70-year-old postmenopausal [...] probability of hip fracture of 1%. Code 76271 Dictating Physician: FLO OCHOA MD Electronically Signed by: FLO OCHOA MD Dic Date/Time: 08/13/201726 Sign date/Time: 08/13/201727 us Diane Cui MD IMG BI PROCEDURES Final Resu lt * ERIKA SCREENING DIGITAL (08/13/2020 2:28 PM EDT) Anatomical Region Laterality Modality Mammography 08/13/2020 1:32 PM EDT Narrative 08/13/2020 2:28 PM EDT [facility] Diagnostic Imaging Department [address] [place] [address] Patient: ??SUNSHINE BRENNER ?/Age/Sex: 1950 - 70 - F Unit#: ??[id number] ? Location/Status: ??SPDIMAM/REG CLI ? Mnemonic/Ordering Site: ??DIGSC/SPMAM Ordering Physician: ??DIANE CUI MD Erika Screening Digital - 08/13/20 - 1355 INDICATION: SCREENING COMPARISON: [facility] mammograms dating back to ?? 02/04/2011 TECHNIQUE: CC and MLO views of the breasts were obtained, using full field digital mammography with 3D tomosynthesis views in the MLO projection. Computer aided detection with the Blink 7.2-H was employed. FINDINGS: The breasts are [...] date for the next mammogram. (G0202 / [id number]) , ??15208 Dictating Physician: ??ROXY VARELA MD Electronically Signed by: ??ROXY VARELA MD Dic Date/Time: ??08/13/20 1424 Sign date/Time: ??08/13/20 1428 Procedure Note Roxy Varela MD - 02/24/2022 [facility] Diagnostic Imaging Department [address] [place] [address] Patient: SUNSHINE BRENNER D.O.B./Age/Sex: 1950 - F Unit#: [id number] [facility]/Ordering Site: [facility] Ordering Physician: DIANE CUI MD Erika Screening Digital - 08/13/20 - 1355 INDICATION: SCREENING COMPARISON: [facility] mammograms dating back to 02/04/2011 TECHNIQUE: CC and MLO views of the breasts were obtained, using full field digital mammography with 3D tomosynthesis views in the MLO projection. Computer aided detection with the Blink 7.2-H was employed. FINDINGS: The breasts are [...] target date for the next mammogram. G0202 [id number]) , [id number] Dictating Physician: ROXY VARELA MD Electronically Signed by: ROXY VARELA MD Dic Date/Time: 08/13/20 1424 Sign date/Time: 08/13/20 1428 Diane Cui MD IMG BI PROCEDURES Final Resu lt from Last 3 Months or Most Recently Relevant to Health Maintenance Insurance [employer] MED[employer]ARE Advance Directives * Full Code - Confirmed (Latest Code Status on File) Date Activated Date Inactivated Comments 04/29/2024 2:53 PM 05/01/2024 2:[address] [facility] was ascertained in the following way: Code status discussion: discussion with patient To update the patient's code status, place a code status order. Do not modify or discontinue any currently active code status orders. Care Teams Executive Vice President Relationship Specialty Start Date End Date Diane Cui MD [address] [place] [address] [address] [place] PCP - General Internal Medicine 12/04/20
--- OUTSIDE RECORDS SUMMARY | 2024-06-21 18:07 | XMS_ITS | Clinical Summary ---
Author Organization [facility] Address [address] [place] [address] Care Team Providers Care Smash Hand Name Role Phone Steven Casas MD Primary Care Provider [phone] Allergies Active Allergy Reactions Criticality Noted Date [...] age to complete this topic Care Teams Smash Hand Relationship Specialty Start Date End Date Steven Casas MD [address] [place] [address] [address] [place] [address] PCP - General Internal Medicine 12/04/20
== END 2024-06-21 16:25 | disposition home or self-care (01) ==
LOC: HO.HMCH 15:46
PROVIDERS: PCP Internal Medicine
DX: I48.91 Unspecified atrial fibrillation (principal); R31.29 Other microscopic hematuria; R82.71 Bacteriuria

== ENCOUNTER → 2024-06-21 15:46 | Outpatient (BNVA) | payer OTHER, SELFPAY | PROVIDERS: PCP Internal Medicine ==

== ENCOUNTER 2024-09-14 13:17 | Outpatient (AMB) | payer OTHER, SELFPAY ==
--- NOTE | 2024-09-14 13:18 | MHC.PC.OV ---
Vital Signs 09/14/24 13:19 Height 5 ft 8 in Weight 165 lb 8 oz BMI 25.2 BP 126/74 Blood Pressure Location Lt brachial Position Sitting Pulse 71 Pulse Source Pulse Oximeter Pulse Oximetry (%) 96 Oxygen Delivery Method Room Air Intake Visit Reasons: preop [employer] Required: No Accompanied by: Self / Same As Patient Allergies penicillin V Allergy (Mild, Verified 09/14/24 13:44) Rash nabumetone Adverse Reaction (Intermediate, Verified 09/14/24 13:44) tinnitus Medication List - Last Reconciled 09/17/24 by Steven Casas MD acetaminophen ER (Tylenol Arthritis Pain) 650 mg PO Q8H PRN apixaban (Eliquis) 5 mg PO BID bupropion HCl 100 mg PO .QD 90 days carisoprodol 350 mg PO TID PRN 10 days cholecalciferol (vitamin D3) 50 mcg PO DAILY 90 days diltiazem HCl CD (Cardizem CD) 120 mg PO DAILY doxycycline hyclate 100 mg PO BID 10 days lorazepam 0.5 mg PO DAILY PRN 30 days methylphenidate HCl 10 mg PO BID PRN 30 days oxycodone 5 mg PO .2 to 3 times a day PRN 28 days tramadol 50 mg PO .3 to 4 times a day PRN 30 days Tobacco use date assessed: 09/14/24 Fall risk assessment: No Falls in past year Last assessed Fall Risk: 09/14/24 Dental Screening Dental Screen Date: 09/14/24 Did you have a dental visit in the last 12 months?: Yes Did you have a dental problem in the last 6 months where you did not have access to dental care?: No Was dental information given to patient?: Patient has dentist HPI preop HPI Details Patient comes in today at the request of Dr. Kaden Atkinson for a preoperative medical examination for clearance for surgery She is scheduled for left ureteroscopy with biopsy and likely stent insertion under general anesthesia on 09/21/2024 Recent work ups done for a mass on the upper pole of the left kidney revealed findings suggestive of transitional cell carcinoma and she will be undergoing the procedure for diagnostic purposes Patient states that she feels okay otherwise She denies any headaches or dizziness Denies any chest pains, no SOB No nausea/vomiting, no abdominal pain No change in bowel habits noted [facility] Medical History (Updated 09/17/24 @ 16:42 by Steven Casas MD) PAF (paroxysmal atrial fibrillation) Overweight (BMI 25.0-29.9) Vitamin D deficiency Menopause Primary osteoarthritis of hands, bilateral Attention deficit disorder (ADD) Atypical squamous cells of undetermined significance (ASC-US) on cervical Pap smear (~2003) Allergic rhinitis Osteoarthritis Anxiety Depression Fibromyalgia Surgical History Hx of colonoscopy (~06/2022) History of breast lift Family History Father Stroke Mother Cervical cancer Uterine cancer Hypertension Maternal Grandmother Stroke Afib Maternal Grandfather Alcohol abuse Other Substance abuse Social History Housing: House Alcohol intake: current Alcohol intake frequency: a few times a week Patient Tobacco Use Status: Never used Tobacco e-Cigarette/Vaping Use: Never Used Second Hand Smoke Exposure: Yes service: No Current occupational status: retired Cognitive needs: No Hearing needs: No Vision needs: Yes (Glasses) Questionnaire PHQ-9 Over the last 2 weeks, how often have you been bothered by any of the following problems? 1. Little interest or pleasure in doing things: not at all 2. Feeling down, depressed, or hopeless: not at all 3. Trouble falling or staying asleep, or sleeping too much: not at all 4. Feeling tired or having little energy: not at all 5. Poor appetite or overeating: not at all 6. Feeling bad about yourself - or that you are a failure or have let yourself or your family down: not at all 7. Trouble concentrating on things, such as reading the newspaper or watching television: not at all 8. Moving or speaking so slowly that other people could have noticed. Or the opposite - being so fidgety or restless that you have been moving around a lot more than usual: not at all 9. Thoughts that you would be better off or of hurting yourself in some way: not at all Total score: 0 Depression Screening Interpretation: Negative Depression Screening Done: Yes 18669 - PHQ-9 Billing: Yes Source: Developed by Drs. Gaye Chicas, Fredy Davis and colleagues, with an educational jonathan from [employer]. Thrive Questionnaire Date Thrive assessed: 09/14/24 I am a: Patient What is your living situation today?: I have a steady place to live Within the past 12 months, did the food you bought not last and you didn't have the money to get more?: Never true Within the past 12 months, did you worry whether your food would run out before you got money to buy more?: Never true Do you have trouble paying for medicines?: No Do you have trouble getting transportation to medical appointments?: No Do you have trouble paying your heating and electricity bill?: No Do you have trouble taking care of your child, family member or friend?: No Do you have trouble with day-to-day activities such as bathing, preparing meals, shopping, managing finances, etc.?: No Are you currently unemployed and looking for a job?: No Are you interested in more education?: No Please select the resources that you would like help with: None Currently or been in a relationship where the following occur: No concerns reported THRIVE Score: 0 AUDIT C Alcohol Use Questionnaire (AUDIT-C) 1. How often do you have a drink containing alcohol?: 2-3 times a week 2. How many drinks containing alcohol do you have on a typical day when you are drinking?: 1 or 2 3. How often do you have six or more drinks on one occasion?: Never Total Score: 3 Score Reviewed/Action Taken: Yes BELLA-7 AMB Questionnaire BELLA-7 Date BELLA - 7 assessed: 09/14/24 Feeling nervous, anxious, or on edge: 0 = Not at all Not being able to stop or control worryin = Not at all Worrying too much about different things: 0 = Not at all Trouble relaxin = Not at all Being so restless that it is hard to sit still: 0 = Not at all Becoming easily annoyed or irritable: 0 = Not at all Feeling afraid as if something awful might happen: 0 = Not at all Total BELLA-7 score (0-4 normal; 5-9 mild; 10-14 moderate; 15-21 severe): 0 Source: Developed by Gaye Palma Kurt Kroenke and colleagues, with an educational jonathan from [employer]. Review of Systems Const Denies chills, Denies fatigue, Denies fever(s) and Denies headache(s) ENT Denies dysphagia, Denies dizziness, Denies otalgia, Denies headache(s), Denies odynophagia and Denies sore throat Card Denies chest pain, Denies palpitations and Denies dyspnea Resp Denies chest congestion, Denies cough and Denies dyspnea GI Denies abdominal pain, Denies constipation, Denies dysphagia, Denies heartburn, Denies diarrhea, Denies nausea, Denies odynophagia and Denies vomiting Denies difficulty voiding, Denies nocturia, Denies dysuria and Denies urinary urgency Musc Details: (+) on and off pain over both legs, often at night Denies back pain, Reports myalgias (diffuse myalgia, on and off, but mostly manageable) and Reports arthralgias (involving multiple joints, including her left knee) Skin/Breast Denies rash Neuro Denies dizziness and Denies headache(s) Endo Denies fatigue and Denies palpitations Physical exam (Primary Care) Vital Signs: Last Vital Signs Pulse 71 09/14/24 13:19 BP 126/74 09/14/24 13:19 Pulse Ox 96 09/14/24 13:19 Oxygen Delivery Method Room Air 09/14/24 13:19 BMI result Body Mass Index 25.2 Tobacco/Smoking Status: Tobacco use Status Tobacco use date assessed 09/14/24 09/14/24 13:26 Patient Tobacco Use Status Never used Tobacco 09/14/24 13:26 e-Cigarette/Vaping Use Never Used 09/14/24 13:26 PHQ-9: PHQ-9 Score PHQ-9: Total score 0 09/15/24 09:44 Depression Screening Interpretation: Negative Thrive Assessment: Date of Thrive Assessment Date Thrive assessed 09/14/24 09/14/24 13:26 Currently or been in a relationship where the following occur: No concerns reported Const General: no acute distress and alert HENMT Ears: TM's normal bilaterally and EAC's normal Throat: Yes posterior oropharynx normal and Yes tonsils normal (no TP congestion noted) Neck Neck: Yes supple and No lymphadenopathy Thyroid: Thyroid normal Resp Auscultation: clear to auscultation bilaterally, no rales and no wheezes Cardio Rate: regular rate Rhythm: regular rhythm Heart sounds: no murmurs GI Palpation (GI): Soft to palpation and nontender Auscultation: normal bowel sounds General: Yes no CVA tenderness Back/Spine/Pelvis Back: no CVA tenderness Thoracic/Lumbar Spine: lumbar spinal tenderness (mild) Skin Rashes: no rashes Extrem General: Yes no clubbing, cyanosis or edema Left lower extremity: knee Details: tenderness (mild); no swelling Coding Level of Care Code Est Pt Level 4 (48049) Diagnoses Preoperative examination Z01.818 Left renal mass N28.89 PAF (paroxysmal atrial fibrillation) I48.0 Fibromyalgia M79.7 Primary osteoarthritis of hands, bilateral M19.041; M19.042 Anemia, unspecified type D64.9 Anemia type: unspecified type Vitamin D deficiency E55.9 Impaired fasting glucose R73.01 Anxiety F41.9 Episode of recurrent major depressive disorder, unspecified depression episode severity F33.9 Depression Type: major depressive disorder Major depression recurrence: recurrent Active/Remission status: currently active Major depression episode severity: unspecified Attention 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.8 Hyperactivity presence: absent Additional Codes PHQ-9 - 83759 - PHQ-9 Billing: Yes ([id number]) Assessment & Plan Assessment & Plan (1) Preoperative examination: Code(s): Z01.818 - Encounter for other preprocedural examination Category: Medical Plan: Patient currently appears medically optimized for her upcoming intermediate cardiac-risk procedure She is advised to go and get some routine follow-up labs LAUREN done to complete her evaluation today (2) Left renal mass: Code(s): N28.89 - Other specified disorders of kidney and ureter Category: Medical Plan: She is currently scheduled for left ureteroscopy with biopsy and likely stent insertion under general anesthesia on 09/21/[address] Sidney Atkinson to further evaluate a recently discovered mass on the upper pole of her left kidney - r/o transitional cell carcinoma (3) PAF (paroxysmal atrial fibrillation): Code(s): I48.0 - Paroxysmal atrial fibrillation Category: Medical Plan: Patient is currently in sinus rhythm She was found to be in atrial fibrillation with rapid ventricular response when she presented to the [facility] in [place] back in April 2024 Echocardiogram done at the time revealed preserved EF with no structural heart disease and a cardiac PET scan done in May 2024 was negative for ischemia Continue Eliquis 5 mg BID for thromboembolism prophylaxis - patient is advised that she can stop taking this about 2 to 3 days before her scheduled procedure and resume it again they day after her surgery is done Continue Diltiazem CD 120 mg QD Follow up with cardiology as scheduled (4) Fibromyalgia: Code(s): M79.7 - Fibromyalgia Category: Medical Plan: Patient is again encouraged on regular exercises and physical activity to help manage her fibromyalgia symptoms Continue Carisoprodol 350 mg TID PRN and Tramadol 50 mg TID PRN; she takes Oxycodone 5 mg 2 to 3 times a day only as needed for severe pain that are not relieved by Tramadol (5) Primary osteoarthritis of hands, bilateral: Code(s): M19.041 - Primary osteoarthritis, right hand; M19.042 - Primary osteoarthritis, left hand Category: Medical Plan: She takes OTC Tylenol ER 650 mg every 6 hours as needed Patient has been encouraged to continue with the hand exercises that she was previously taught on a regular basis to help manage her hand and finger symptoms (6) Anemia: Code(s): D64.9 - Anemia, unspecified Category: Medical Qualifiers: Anemia type: unspecified type Qualified Code(s): D64.9 - Anemia, unspecified Plan: Her H/H were normal on her previous labs Will continue to monitor her CBC regularly - will send her to the lab to get this rechecked LAUREN (7) Vitamin D deficiency: Code(s): E55.9 - Vitamin D deficiency, unspecified Category: Medical Plan: Continue Vitamin D3 2000 units QD (8) Impaired fasting glucose: Code(s): R73.01 - Impaired fasting glucose Category: Medical Plan: Her HgbA1c was normal at 5.7% when previously checked in April 2024 Reinforced low calorie/low carb diet (9) Anxiety: Code(s): F41.9 - Anxiety disorder, unspecified Category: Medical Plan: Continue Lorazepam 0.5 mg QD PRN; Bupropion also helps with her anxiety (10) Depression: Code(s): F32.9 - Major depressive disorder, single episode, unspecified Category: Medical Qualifiers: Depression Type: major depressive disorder Major depression recurrence: recurrent Active/Remission status: currently active Major depression episode severity: unspecified Qualified Code(s): F33.9 - Major depressive disorder, recurrent, unspecified Plan: Continue Bupropion 100 mg QD (11) Attention deficit disorder (ADD): Code(s): F98.8 - Other specified behavioral and emotional disorders with onset usually occurring in childhood and adolescence Category: Medical Qualifiers: Hyperactivity presence: absent Qualified Code(s): F98.8 - Other specified behavioral and emotional disorders with onset usually occurring in childhood and adolescence Plan: Continue Methylphenidate 10 mg BID as needed - patient states that she only takes her Rx when she has a lot of paperworks to do at home Plan Patient currently appears medically optimized and does not appear to have any contraindications for her upcoming intermediate cardiac-risk procedure She was sent for some follow-up labs and once these results are available, we will then complete her preop clearance for surgery Will have patient return later this year/in a few months for annual physical examination Orders: Orders Complete Blood Count Auto Diff 09/14/24 D64.9 - Anemia, unspecified, Z01.818 - Encounter for other preprocedural examination Comprehensive Met. Panel 09/14/24 Z01.818 - Encounter for other preprocedural examination
[2024-09-14 13:19] VITALS: BP 126/74; PULSE 71; O2SAT 96; BMI 25.2
--- OUTSIDE RECORDS SUMMARY | 2024-09-14 13:21 | XMS_ITS | Clinical Summary ---
Author Organization [facility] Address [address] [place] [address] Care Team Providers Care Systems Developer Name Role Phone Steven Casas MD Primary Care Provider [phone] Allergies Active Allergy Reactions Criticality Noted Date [...] 70 07/17/2021 12:40 PM EDT Temperature 37.1 C (98.7 F) 07/17/2021 12:40 PM EDT Respiratory Rate 18 07/17/2021 12:40 PM EDT [...] 5 season) 2023 12/05/2020 Influenza Vaccine (#1) 2024 RSV Adult > 60+ Yrs or Pregn ant (1 - 1-dose 75+ series) 07/14/2026 Hepatitis B Vaccines Aged Out No long er eligible based on patient's age to complete this topic RSV Ped < 20 months Aged Out No longe r eligible based on patient's age to complete this topic Care Teams Systems Developer Relationship Specialty Start Date End Date Steven Casas MD [address] [place] [address] Dr [facility] JERRY White [id number] PCP - General Internal Medicine 12/04/20
--- OUTSIDE RECORDS SUMMARY | 2024-09-14 13:21 | XMS_ITS ---
Author Name [facility] Organization Unknown Results Test Name/Text Value Interpretation Date Range Source Hyaline Casts #/area UrnS LPF 1.0 /LPF Normal 07/03/2024 - 5 [facility] WBC #/area UrnS HPF 5.0 /HPF Normal 07/03/2024 0 - 5 [facility] Squamous #/area UrnS HPF 1.0 /HPF Normal 07/03/2024 0 - 5 [facility] RBC #/area UrnS HPF 4.0 /HPF Above high normal 07/03/2024 0 - 3 [facility] Hgb Ur Ql Moderate Abnormal 07/03/2024 - [facility] pH Ur 5.5 pH Normal 07/03/2024 5 - 8 [facility] Prot Ur Strip-mCnc Negative Normal 07/03/2024 - [facility] Nitrite Ur Ql Negative Normal 07/03/2024 - [facility] Glucose Ur Ql Negative Normal 07/03/2024 - [facility] Sp Gr Ur <=1.005 Normal 07/03/2024 1.005 - 1.03 [facility] Color Ur Yellow Normal 07/03/2024 - [facility] Leukocyte esterase Ur Ql Strip Trace Abnormal 07/03/2024 - [facility] Clarity Ur Clear Normal 07/03/2024 - [facility] Ketones Ur-mCnc Negative Normal 07/03/2024 - [facility] eGFRcr SerPlBld CKD-EPI 2020 60.0 mL/min/1.73m2 Normal 05/01/2024 - [facility] Sodium SerPl-sCnc 142.0 mmol/L Normal 05/01/2024 135 - 14 5 [facility] Creat SerPl-mCnc 1.0 mg/dL Normal 05/01/2024 0.5 - 1 [facility] BUN SerPl-mCnc 16.0 mg/dL Normal 05/01/2024 7 - 17 [facility] BUN/Creat SerPl 16.0 Normal 05/01/2024 12 - 20 [facility] Glucose SerPl-mCnc 102.0 mg/dL Normal 05/01/2024 70 - 199 [facility] Chloride SerPl-sCnc 106.0 mmol/L Normal 05/01/2024 98 - 1 07 [facility] Anion Gap SerPl-sCnc 7.0 Normal 05/01/2024 5 - 14 [facility] CO2 SerPl-sCnc 29.0 mmol/L Normal 05/01/2024 24 - 32 [facility] Potassium SerPl-sCnc 4.4 mmol/L Normal 05/01/2024 3.5 - 5.1 [facility] Calcium SerPl-mCnc 9.6 mg/dL Normal 05/01/2024 8.4 - 10.2 [facility] Magnesium SerPl-mCnc 1.9 mg/dL Normal 05/01/2024 1.7 - 2.8 [facility] Phosphate SerPl-mCnc 3.0 mg/dL Normal 05/01/2024 2.5 - 4.5 [facility] Hct VFr Bld Auto 38.9 % Normal 05/01/2024 37 - 47 [facility] PMV Bld Auto 9.3 FL Normal 05/01/2024 7.4 - 11.4 [facility] MCHC RBC Auto-mCnc 32.1 g/dL Normal 05/01/2024 32 - 36 [facility] Platelet # Bld Auto 262.0 K/mcL Normal 05/01/2024 150 - 4 50 [facility] MCV RBC Auto 95.3 FL Normal 05/01/2024 78 - 100 [facility] Hgb Bld-mCnc 12.5 g/dL Normal 05/01/2024 12.5 - 16 [facility] RDW RBC Auto-Rto 12.7 % Normal 05/01/2024 12.1 - 16.2 [facility] RBC # Bld Auto 4.08 M/mcL Below low normal 05/01/2024 4.2 - 5.4 [facility] WBC # Bld Auto 5.0 K/mcL Normal 05/01/2024 4 - 10.5 [facility] MCH RBC Qn Auto 30.6 pcg Normal 05/01/2024 25 - 33 [facility] CO2 SerPl-sCnc 29.0 mmol/L Normal 04/30/2024 24 - 32 [facility] BUN/Creat SerPl 16.5 Normal 04/30/2024 12 - 20 [facility] Calcium SerPl-mCnc 9.0 mg/dL Normal 04/30/2024 8.4 - 10.2 [facility] BUN SerPl-mCnc 15.0 mg/dL Normal 04/30/2024 7 - 17 [facility] Chloride SerPl-sCnc 108.0 mmol/L Above high normal 98 - 107 [facility] Anion Gap SerPl-sCnc 5.0 Normal 04/30/2024 5 - 14 [facility] Creat SerPl-mCnc 0.91 mg/dL Normal 04/30/2024 0.5 - 1 C [facility] eGFRcr SerPlBld CKD-EPI 2020 67.0 mL/min/1.73m2 Normal 04/30/2024 - [facility] Glucose SerPl-mCnc 107.0 mg/dL Normal 04/30/2024 70 - 199 [facility] Sodium SerPl-sCnc 142.0 mmol/L Normal 04/30/2024 135 - 14 5 [facility] Potassium SerPl-sCnc 4.2 mmol/L Normal 04/30/2024 3.5 - 5.1 [facility] MCV RBC Auto 96.4 FL Normal 04/30/2024 78 - 100 [facility] PMV Bld Auto 9.3 FL Normal 04/30/2024 7.4 - 11.4 [facility] Hgb Bld-mCnc 12.0 g/dL Below low normal 04/30/2024 12.5 - 16 [facility] Platelet # Bld Auto 238.0 K/mcL Normal 04/30/2024 150 - 4 50 [facility] MCHC RBC Auto-mCnc 32.3 g/dL Normal 04/30/2024 32 - 36 [facility] RBC # Bld Auto 3.86 M/mcL Below low normal 04/30/2024 4.2 - 5.4 [facility] WBC # Bld Auto 5.0 K/mcL Normal 04/30/2024 4 - 10.5 [facility] RDW RBC Auto-Rto 12.9 % Normal 04/30/2024 12.1 - 16.2 [facility] Hct VFr Bld Auto 37.2 % Normal 04/30/2024 37 - 47 [facility] MCH RBC Qn Auto 31.1 pcg Normal 04/30/2024 25 - 33 [facility] Albumin SerPl-mCnc 4.7 g/dL Normal 04/29/2024 3.5 - 5 [facility] Prot SerPl-mCnc 7.4 g/dL Normal 04/29/2024 6.4 - 8.5 [facility] Bilirub SerPl-mCnc 0.2 mg/dL Below low normal 04/29/2024 0.3 - 1 [facility] ALT SerPl-cCnc 23.0 unit/L Normal 04/29/2024 7 - 52 [facility] Bilirub Indirect SerPl-mCnc 0.2 mg/dL Normal 04/29/2024 [facility] ALP SerPl-cCnc 61.0 unit/L Normal 04/29/2024 34 - 104 [facility] AST SerPl-cCnc 23.0 unit/L Normal 04/29/2024 5 - 40 [facility] Bilirub Direct SerPl-mCnc 0.0 mg/dL Normal 04/29/2024 0 - 0.2 [facility] aPTT PPP 32.7 sec Normal 04/29/2024 25 - 37 [facility] INR PPP 0.8 Normal 04/29/2024 0.8 - 1.1 [facility] PT Bld 9.5 sec Below low normal 04/29/2024 10.5 - 13.3 [facility] TSH SerPl DL<=0.005 mIU/L-aCnc 2.04 mcIU/mL Normal 04/29/2024 0.45 - 5.33 [facility] D dimer DDU PPP-mCnc 152.0 ng/mL DDU Normal 04/29/2024 - 231 [facility] Troponin I SerPl HS-mCnc 4.0 ng/L Normal 04/29/2024 0 - 14 [facility] BUN SerPl-mCnc 21.0 mg/dL Above high normal 04/29/2024 7 - 1 7 [facility] CO2 SerPl-sCnc 30.0 mmol/L Normal 04/29/2024 24 - 32 CT [facility] Calcium SerPl-mCnc 10.2 mg/dL Normal 04/29/2024 8.4 - 10. 2 [facility] Sodium SerPl-sCnc 141.0 mmol/L Normal 04/29/2024 135 - 14 5 [facility] eGFRcr SerPlBld CKD-EPI 2020 59.0 mL/min/1.73m2 Below low normal 04/29/2024 - [facility] Glucose SerPl-mCnc 86.0 mg/dL Normal 04/29/2024 70 - 199 [facility] Anion Gap SerPl-sCnc 8.0 Normal 04/29/2024 5 - 14 [facility] BUN/Creat SerPl 20.6 Above high normal 04/29/2024 12 - 20 [facility] Potassium SerPl-sCnc 3.7 mmol/L Normal 04/29/2024 3.5 - 5.1 [facility] Chloride SerPl-sCnc 103.0 mmol/L Normal 04/29/2024 98 - 1 07 [facility] Creat SerPl-mCnc 1.02 mg/dL Above high normal 04/29/2024 0.5 - 1 [facility] Magnesium SerPl-mCnc 2.0 mg/dL Normal 04/29/2024 1.7 - 2.8 [facility] RDW RBC Auto-Rto 12.7 % Normal 04/29/2024 12.1 - 16.2 [facility] Eosinophil/leuk NFr Bld Auto 2.0 % Normal 04/29/2024 0 - 6 [facility] Lymphocytes/leuk NFr Bld Auto 39.4 % Normal 04/29/2024 20 - 48 [facility] Platelet # Bld Auto 278.0 K/mcL Normal 04/29/2024 150 - 4 50 [facility] WBC # Bld Auto 6.1 K/mcL Normal 04/29/2024 4 - 10.5 [facility] PMV Bld Auto 9.4 FL Normal 04/29/2024 7.4 - 11.4 [facility] Neutrophils # Bld Auto 3.1 K/mcL Normal 04/29/2024 1.8 - 7.8 [facility] Basophils/leuk NFr Bld Auto 0.5 % Normal 04/29/2024 0 - 2 [facility] Monocytes # Bld Auto 0.45 K/mcL Normal 04/29/2024 0 - 0.8 [facility] MCH RBC Qn Auto 31.4 pcg Normal 04/29/2024 25 - 33 [facility]_ [facility] MCHC RBC Auto-mCnc 33.2 g/dL Normal 04/29/2024 32 - 36 [facility] Neutrophils/leuk NFr Bld Auto 50.5 % Normal 04/29/2024 44 - 74 [facility] Hgb Bld-mCnc 13.5 g/dL Normal 04/29/2024 12.5 - 16 [facility] Basophils # Bld Auto 0.03 K/mcL Normal 04/29/2024 0 - 0.2 [facility] Monocytes/leuk NFr Bld Auto 7.4 % Normal 04/29/2024 2 - 12 [facility] Eosinophil # Bld Auto 0.12 K/mcL Normal 04/29/2024 0 - 0.5 [facility] Hct VFr Bld Auto 40.7 % Normal 04/29/2024 37 - 47 [facility] Lymphocytes # Bld Auto 2.41 K/mcL Normal 04/29/2024 1 - 3.2 [facility] MCV RBC Auto 94.7 FL Normal 04/29/2024 78 - 100 [facility] RBC # Bld Auto 4.3 M/mcL Normal 04/29/2024 4.2 - 5.4 [facility] Est. average glucose Bld gHb Est-mCnc 117.0 mg/dL Normal 04/27/2024 [facility] HbA1c MFr Bld 5.7 % Above high normal 04/27/2024 - 5.7 [facility] Folate SerPl-mCnc 12.5 ng/ml Normal 04/26/2024 - [facility] 25(OH)D3 SerPl-mCnc 29.5 ng/mL Below low normal 04/26/2024 3 0 - 100 [facility] HDLc SerPl-mCnc 95.0 mg/dL Above high normal 04/26/2024 33 - 92 [facility] Trigl SerPl-mCnc 56.0 mg/dL Normal 04/26/2024 - 150 C [facility] VLDLc SerPl Calc-mCnc 11.2 mg/dL Normal 04/26/2024 [facility] Cholest SerPl-mCnc 195.0 mg/dL Normal 04/26/2024 0 - 200 [facility] LDLc SerPl Calc-mCnc 89.0 mg/dL Normal 04/26/2024 50 - 130 [facility] TSH SerPl DL<=0.005 mIU/L-aCnc 1.93 mcIU/mL Normal 04/26/2024 0.45 - 5.33 [facility] Chloride SerPl-sCnc 105.0 mmol/L Normal 04/26/2024 98 - 1 07 [facility] AST SerPl-cCnc 15.0 unit/L Normal 04/26/2024 5 - 40 [facility] Potassium SerPl-sCnc 3.7 mmol/L Normal 04/26/2024 3.5 - 5.1 [facility] BUN/Creat SerPl 24.5 Above high normal 04/26/2024 12 - 20 [facility] Bilirub SerPl-mCnc 0.6 mg/dL Normal 04/26/2024 0.3 - 1 [facility] Creat SerPl-mCnc 0.98 mg/dL Normal 04/26/2024 0.5 - 1 C [facility] Albumin SerPl-mCnc 4.4 g/dL Normal 04/26/2024 3.5 - 5 [facility] Calcium SerPl-mCnc 9.6 mg/dL Normal 04/26/2024 8.4 - 10.2 [facility] Glucose SerPl-mCnc 90.0 mg/dL Normal 04/26/2024 70 - 99 [facility] Anion Gap SerPl-sCnc 7.0 Normal 04/26/2024 5 - 14 [facility] Sodium SerPl-sCnc 140.0 mmol/L Normal 04/26/2024 135 - 14 5 [facility] eGFRcr SerPlBld CKD-EPI 2020 61.0 mL/min/1.73m2 Normal 04/26/2024 - [facility] BUN SerPl-mCnc 24.0 mg/dL Above high normal 04/26/2024 7 - 1 7 [facility] Prot SerPl-mCnc 6.8 g/dL Normal 04/26/2024 6.4 - 8.5 [facility] ALP SerPl-cCnc 56.0 unit/L Normal 04/26/2024 34 - 104 [facility] CO2 SerPl-sCnc 28.0 mmol/L Normal 04/26/2024 24 - 32 [facility] ALT SerPl-cCnc 17.0 unit/L Normal 04/26/2024 7 - 52 [facility] Bacteria #/area UrnS HPF Trace Abnormal 04/26/2024 - [facility] WBC #/area UrnS HPF 6.0 /HPF Above high normal 04/26/2024 0 - 5 [facility] WBC clumps #/area UrnS HPF Rare Abnormal 04/26/2024 - [facility] Squamous Epithelial, Urine 1.0 /HPF Normal 04/26/2024 0 - 5 [facility] RBC #/area UrnS HPF 3.0 /HPF Normal 04/26/2024 0 - 3 [facility] Clarity Ur Clear Normal 04/26/2024 - [facility] Nitrite Ur Ql Negative Normal 04/26/2024 - [facility] Sp Gr Ur 1.025 Normal 04/26/2024 1.005 - 1.03 [facility] MH pH Ur 5.5 pH Normal 04/26/2024 5 - 8 [facility] Color Ur Yellow Normal 04/26/2024 - [facility] Leukocyte esterase Ur Ql Strip Trace Abnormal 04/26/2024 - [facility] Hgb Ur Ql Small Abnormal 04/26/2024 - [facility] Prot Ur Strip-mCnc Negative Normal 04/26/2024 - [facility] Glucose Ur Ql Negative Normal 04/26/2024 - [facility] Ketones Ur-mCnc Negative Normal 04/26/2024 - [facility] Platelet # Bld Auto 257.0 K/mcL Normal 04/26/2024 150 - 4 50 [facility] Neutrophils/leuk NFr Bld Auto 54.5 % Normal 04/26/2024 44 - 74 [facility] Monocytes # Bld Auto 0.3 K/mcL Normal 04/26/2024 0 - 0.8 [facility] RDW RBC Auto-Rto 12.7 % Normal 04/26/2024 12.1 - 16.2 [facility] Hgb Bld-mCnc 12.8 g/dL Normal 04/26/2024 12.5 - 16 [facility] Lymphocytes # Bld Auto 1.68 K/mcL Normal 04/26/2024 1 - 3.2 [facility] Hct VFr Bld Auto 39.6 % Normal 04/26/2024 37 - 47 [facility] MCH RBC Qn Auto 31.1 pcg Normal 04/26/2024 25 - 33 [facility] PMV Bld Auto 9.5 FL Normal 04/26/2024 7.4 - 11.4 [facility] Eosinophil # Bld Auto 0.09 K/mcL Normal 04/26/2024 0 - 0.5 [facility] Monocytes/leuk NFr Bld Auto 6.5 % Normal 04/26/2024 2 - 12 [facility] MCV RBC Auto 96.1 FL Normal 04/26/2024 78 - 100 [facility] Basophils # Bld Auto <0.03 K/mcL Normal 04/26/2024 0 - 0.2 [facility] RBC # Bld Auto 4.12 M/mcL Below low normal 04/26/2024 4.2 - 5.4 [facility] Lymphocytes/leuk NFr Bld Auto 36.3 % Normal 04/26/2024 20 - 48 [facility] MCHC RBC Auto-mCnc 32.3 g/dL Normal 04/26/2024 32 - 36 [facility] Neutrophils # Bld Auto 2.52 K/mcL Normal 04/26/2024 1.8 - 7.8 [facility] Eosinophil/leuk NFr Bld Auto 1.9 % Normal 04/26/2024 0 - 6 [facility] Basophils/leuk NFr Bld Auto 0.4 % Normal 04/26/2024 0 - 2 [facility] WBC # Bld Auto 4.6 K/mcL Normal 04/26/2024 4 - 10.5 [facility] RBC number/area UrnS Auto 3.0 /HPF Normal 07/27/2023 0 - 3 [facility] WBC number/area UrnS Auto 3.0 /HPF Normal 07/27/2023 0 - 5 [facility] SQUAMOUS NO./AREA URNS LPF 5.0 /LPF Normal 07/27/2023 0 - 5 [facility] HGB BLD MCNC 12.7 g/dL Normal 07/27/2023 12.5 - 16 [facility] RDW RBC AUTO RTO 12.7 % Normal 07/27/2023 12.1 - 16.2 [facility] EOSINOPHIL NFR BLD AUTO 4.2 % Normal 07/27/2023 0 - 6 [facility] MONOCYTES NO. BLD AUTO 0.3 K/uL Normal 07/27/2023 0 - 0.8 [facility] MCV RBC AUTO 96.0 fL Normal 07/27/2023 78 - 100 [facility] MCHC RBC AUTO MCNC 32.9 g/dL Normal 07/27/2023 32 - 36 [facility] NUCLEATED RBC 0.0 % Normal 07/27/2023 0 - [address] [facility] NEUTROPHILS NFR BLD AUTO 41.3 % Below low normal 07/27/2023 44 - 74 [facility] PMV BLD AUTO 9.6 fL Normal 07/27/2023 7.4 - 11.4 [facility] WBC NO. BLD AUTO 4.8 K/uL Normal 07/27/2023 4 - 10.5 CT [facility] BASOPHILS IN BLOOD BY AUTOMATED COUNT 0.0 K/uL Normal 07/27/2023 0 - 0.2 [facility] IMMATURE GRANULOCYTE, PERCENT 0.2 % Normal 07/27/2023 0 - 1 [facility] NEUTROPHILS NO. BLD AUTO 2.0 K/uL Normal 07/27/2023 1.8 - 7.8 [facility] IMMATURE GRANULOCYTE, ABSOLUTE 0.01 k/uL Normal 07/27/2023 - 0.1 [facility] EOSINOPHIL NO. BLD AUTO 0.2 K/uL Normal 07/27/2023 0 - 0.5 [facility] MCH RBC QN AUTO 31.6 pg Normal 07/27/2023 25 - 33 [facility] RBC NO. BLD AUTO 4.02 M/uL Below low normal 07/27/2023 4.2 - 5.4 [facility] PLATELET NO. BLD AUTO 251.0 K/uL Normal 07/27/2023 150 - 450 [facility] BASOPHILS NFR BLD AUTO 0.8 % Normal 07/27/2023 0 - 2 [facility] HCT VFR BLD AUTO 38.6 % Normal 07/27/2023 37 - 47 [facility] LYMPHOCYTES NFR BLD AUTO 47.0 % Normal 07/27/2023 20 - 48 [facility] LYMPHOCYTES NO. BLD AUTO 2.2 K/uL Normal 07/27/2023 1 - 3.2 [facility] MONOCYTES NFR BLD AUTO 6.5 % Normal 07/27/2023 2 - 12 [facility] Ketones Ur Ql Strip.auto NEGATIVE Normal 07/27/2023 - [facility] Clarity Ur Refract.auto CLEAR Normal 07/27/2023 [facility] Hgb Ur Ql Strip.auto SMALL Abnormal 07/27/2023 - [facility] pH Ur Strip.auto 5.5 Normal 07/27/2023 4.5 - 8 [facility] Glucose Ur Ql Strip.auto NEGATIVE Normal 07/27/2023 - [facility] Leukocyte esterase Ur Ql Strip.auto TRACE Abnormal 07/27/2023 - [facility] Sp Gr Ur Strip.auto >1.030 Above high normal 07/27/2023 1 .005 - 1.03 [facility] Nitrite Ur Ql Strip.auto NEGATIVE Normal 07/27/2023 - [facility] Prot Ur Ql Strip.auto NEGATIVE Normal 07/27/2023 - [facility] SPECIMEN SOURCE XXX URINE CLEAN CATCH Normal 07/27/2023 [facility] 25(OH)D3+25(OH)D2 SerPl IA-mCnc 28.0 ng/mL Below low normal 07/27/2023 30 - 100 [facility] TSH SerPl DL<=0.005 mIU/L-aCnc 2.58 uIU/mL Normal 07/27/2023 0.45 - 5.33 [facility] TRIGL SERPL-MCNC 87.0 mg/dL Normal 07/27/2023 - 150 [facility] CHOLEST SERPL-MCNC 182.0 mg/dL Normal 07/27/2023 0 - 200 [facility] HDLC SERPL-MCNC 76.0 mg/dL Normal 07/27/2023 33 - [facility] Ser[facility] Calc-mCnc 89.0 mg/dL Normal 07/27/2023 50 - 130 [facility] Hgb A1c MFr Bld HPLC 5.5 % Normal 07/27/2023 - 5.7 [facility] CREAT SERPL MCNC 1.0 mg/dL Normal 07/27/2023 0.5 - [address] [facility] [place] Glomerular filtration rate/1.73 sq M. predicted 60.0 Below low normal 07/27/2023 60 - [facility] ANION GAP SERPL SCNC 5.0 mmol/L Normal 07/27/2023 5 - 14 [facility] GLUCOSE P FAST SERPL MCNC 101.0 mg/dL Above high normal 07/27/2023 70 - 99 [facility] CALCIUM SERPL MCNC 9.3 mg/dL Normal 07/27/2023 8.4 - 10.2 [facility] BILIRUB SERPL MCNC 0.6 mg/dL Normal 07/27/2023 0.3 - 1 [facility] CHLORIDE SERPL SCNC 107.0 mmol/L Normal 07/27/2023 98 - 1 07 [facility] ALBUMIN SERPL BCG MCNC 4.3 g/dL Normal 07/27/2023 3.5 - 5 [facility] ALT SERPL CCNC 24.0 U/L Normal 07/27/2023 7 - 52 [facility] AST SERPL CCNC 15.0 U/L Normal 07/27/2023 5 - 40 [facility] PROT SERPL MCNC 6.7 g/dL Normal 07/27/2023 6.4 - 8.5 [facility] ALP SERPL-CCNC 56.0 U/L Normal 07/27/2023 34 - 104 [facility] BUN SERPL MCNC 24.0 mg/dL Above high normal 07/27/2023 7 - 1 7 [facility] SODIUM SERPL SCNC 141.0 mmol/L Normal 07/27/2023 135 - 14 5 [facility] HCO3 SER SCNC 29.0 mmol/L Normal 07/27/2023 24 - 32 [facility] POTASSIUM SERPL SCNC 4.2 mmol/L Normal 07/27/2023 3.5 - 5.1 [facility] History of Medication Use Medication Directions Dispensed Refills Start Date End Date Stat Durolane 60 mg/3 mL intra-articular syringe Take 60 mg by intraarticular route. 05/22/2024 active dilTIAZem CD (CARDIZEM CD) 120 mg 24 hr capsule Take 1 capsule (120 mg total) by mouth 1 (one) time each day. 05/01/2024 05/01/19 aborted oxyCODONE (ROXICODONE) immediate release tablet 5 mg 5 mg, oral, Daily PRN, severe pain, moderate pain, Starting on 04/30/24 at 200404/30/2024 04/30/19 active buPROPion (WELLBUTRIN) tablet 100 mg 100 mg, oral, 2 times daily, First dose on 04/30/24 at 0900 04/30/2024 active docusate sodium (COLACE) capsule 100 mg 100 mg, oral, 2 times daily, First dose on 04/29/24 at 209904/30/2024 active senna (SENOKOT) tablet 8.6 mg 8.6 mg (1 tablet), oral, Nightly, First dose on 04/29/24 at 209904/30/2024 active apixaban (ELIQUIS) 5 mg tablet Take 1 tablet (5 mg total) by mouth 2 (two) times a day. 04/29/2024 05/01/19 active dextrose 5 % and sodium chloride 0.9 % infusion 75 mL/hr, intravenous, Continuous, Starting on 04/29/24 at 1454, For 12 hours 04/29/2024 04/30/19 aborted dilTIAZem (CARDIZEM) 125 mg in sodium chloride (non-PVC) 0.9 % 125 mL (1 mg/mL) infusion 5-15 mg/hr (5-15 mL/hr), intravenous, Continuous, Starting on 04/29/24 at 0023, GOAL EFFECT: Decrease HR to LESS than 110 BPM INITIAL RATE: 5 mg/hr USUAL DOSE RANGE: 5 - 15 mg/hr TITRATION DOSE: 2.5 mg/hr TITRATION FREQUENCY: 30 min CONTACT PRESCRIBER: -HR LESS than 60 BPM -HR GREATER 04/29/2024 04/29/19 aborted labetalol (NORMODYNE) injection 10 mg 10 mg, intravenous, Once, On 04/29/24 at 0151, For 1 dose, May administer undiluted over 2 minutes; maximum: 10 mg/minute. 04/29/2024 04/29/19 completed sodium chloride 0.9 % bolus 1,000 mL 1,000 mL, intravenous, at 2,000 mL/hr, Administer over 30 Minutes, Once, On 04/29/24 at 0007, For 1 dose 04/29/2024 04/29/19 completed acetaminophen (TYLENOL) tablet 650 mg 650 mg, oral, Every 6 hours PRN, mild pain, headaches, fever - temperature GREATER than 38 C (100.4 F), Starting on 04/29/24 at 1452 04/29/2024 active dilTIAZem (CARDIZEM) 5 mg/mL injection - ADS Override Pull Starting on 04/29/24 at 0002, For 1 dose, Created by cabinet override 04/29/2024 active dilTIAZem (CARDIZEM) injection 15 mg 15 mg, intravenous, Once, On 04/29/24 at 0019, For 1 dose, For IV Push - administer over 2 minutes with continuous ECG and blood pressure monitoring 04/29/2024 active sodium chloride 0.9 % flush 10 mL [Order 1 Start] Name: Insert peripheral IV Signed Summary: STAT, Once, On 04/29/24 at 1451, For 1 occurrence [Order 1 End] [Order 2 Start] Name: Maintain IV access Signed Summary: Until discontinued, Starting on 04/29/24 at 1451, Until Specified [Order 2 End] [Order 3 Start] Name: Saline lock 04/29/2024 active prednisone 10 mg tablet Take 4 tablet(s) EVERY DAY by oral route for 2 days, then decrease by 1 pill every 2 days until gone (4,4,3,3,2,2,1,1) 06/14/2023 active LORazepam (ATIVAN) 0.5 MG tablet TAKE 1 TABLET BY MOUTH ONCE DAILY NEEDED FOR ANXIETY FOR 30 DAYS 06/05/2021 active methylphenidate (RITALIN) 10 MG tablet Take 10 mg by mouth 2 (two) times a day. 05/06/2021 active carisoprodol 350 mg tablet TAKE 1 TABLET BY MOUTH THREE TIMES DAILY NEEDED FOR MUSCLE SPASM FOR 10 DAYS 08/17/19 25 completed ciprofloxacin 500 mg tablet TAKE 1 TABLET BY MOUTH TWICE DAILY FOR 7 DAYS 08/17/19 25 completed lorazepam 0.5 mg tablet TAKE 1 TABLET BY MOUTH ONCE DAILY NEEDED FOR ANXIETY FOR 30 DAYS 08/17/19 25 completed methylphenidate 10 mg tablet TAKE 1 TABLET BY MOUTH TWICE DAILY NEEDED FOR ATTENTION DEFICIT 08/17/19 25 completed Xarelto 20 mg tablet TAKE 1 TABLET BY MOUTH DAILY 08/17/19 25 completed Durolane 60 mg/3 mL intra-articular syringe active bupropion HCl 100 mg tablet TAKE 1 TABLET BY MOUTH ONCE DAILY active carisoprodol 350 mg tablet TAKE 1 TABLET BY MOUTH THREE TIMES DAILY NEEDED FOR MUSCLE SPASM FOR 10 DAYS active ciprofloxacin 500 mg tablet TAKE 1 TABLET BY MOUTH TWICE DAILY FOR 7 DAYS active diltiazem CD 120 mg capsule,extended release 24 hr active Eliquis 5 mg tablet acti ve lorazepam 0.5 mg tablet TAKE 1 TABLET BY MOUTH ONCE DAILY NEEDED FOR ANXIETY active methylphenidate 10 mg tablet TAKE 1 TABLET BY MOUTH TWICE DAILY NEEDED FOR ATTENTION DEFICIT active oxycodone 5 mg tablet TAKE 1 TABLET BY MOUTH 2-3 TIMES DAILY NEEDED FOR PAIN active Xarelto 20 mg tablet TAKE 1 TABLET BY MOUTH DAILY active methylphenidate (RITALIN) 10 mg tablet Take 1 tablet (10 mg total) by mouth 2 (two) times daily before breakfast and lunch. Max Daily Amount: 20 mg suspende d Allergies Allergen Reaction Severity Comment Documented Date Source Statu s PENICILLIN G HIVES 04/28/2024 [facility] active PENICILLINS [facility] Problems Problem Status Onset Date Problem Type Date of Resolution Source Microscopic hematuria active 2024-08-16 ProblemAct [facility] Renal mass active 2024-09-06 ProblemAct [facility] New onset atrial fibrillation (CMS/HCC V24, CMS/HCC V28) active 2024-04-29 ProblemAct [facility] Other microscopic hematuria active EncounterDiagnosisAct [facility] Osteoarthritis of left hip joint active 2024-07-04 ProblemAct [facility] Osteoarthritis of left knee joint active 2024-03-28 ProblemAct [facility] Narcotic drug user active 2024-04-25 ProblemAct [facility] Opioid dependence active 2024-04-25 ProblemAct [facility] Cervical spondylosis active 2023-06-14 ProblemAct [facility] Pain of left knee joint active 2024-05-22 ProblemAct [facility] Neck pain active 2023-07-19 ProblemAct [facility] Dysuria active EncounterDiagnosisAct [facility] Pure hypercholesterolemia , unspecified active EncounterDiagnosisAct [facility] Fibromyalgia active EncounterDiagnosisAct [facility] Vitamin D deficiency, unspecified active EncounterDiagnosisAct [facility] Anemia, unspecified active EncounterDiagnosisAc t [facility] Impaired fasting glucose active EncounterDiagnosisAct [facility] Immunizations Vaccine Date Source Lot Number Status Pfizer SARS-CoV-2 COVID-19, mRNA, LNP-S, preservative free 12/05/2020 [facility] [id number] completed Encounters Encounter Type Encounter Reason Primary Diagnosis Location Date Ambulatory Gavin reynolds MD, [facility] 09/11/2024 Ambulatory [facility] 09[facility]06/2024 Ambulatory [facility] 08/16/2024 Ambulatory [facility] 08/16/2024 Ambulatory [facility] 08[facility]16/2024 Ambulatory [facility] 08/16/2024 Ambulatory [facility] 08/14/2024 Ambulatory Other microscopic hematuria Other microscopic hematuria [facility] 07/26/2024 Ambulatory Gavin reynolds MD, [facility] 07/25/2024 Ambulatory Gavin reynolds MD, [facility] 07/25/2024 Ambulatory [facility] 07/05/2024 Ambulatory [facility] 07/05/2024 Ambulatory [facility] 07/05/2024 Ambulatory [facility] 07/05/2024 Ambulatory [facility] 07/04/2024 Ambulatory Bacteriuria Bacteriuria [facility] 07/03/2024 [facility]24 Ambulatory [facility] 05/19/2024 Ambulatory [facility] 05/19/2024 Ambulatory [facility] 05/12/2024 [facility]ulatory [facility] [facility] [place] 05/11/2024 Ambulatory [facility] 05/02/2024 Emergency fast heart rate Unspecified atri al fibrillation [facility] 04/28/2024 Ambulatory Pure hypercholesterolemia , unspecified Pure hypercholesterolemia , unspecified [facility] 04/26/2024 Ambulatory [facility] [place] 04/26/2024 Ambulatory [facility] [place] 04/25/2024 Ambulatory [facility] [place] 04/12/2024 Ambulatory [facility] [place] 04/06/2024 Ambulatory [facility] [place] 04/05/2024 Ambulatory [facility] [place] 04/05/2024 Ambulatory [facility] [place] 04/05/2024 Ambulatory [facility] [place] 03/15/2024 Ambulatory [facility] [place] 03/14/2024 Ambulatory [facility] [place] 03/14/2024 Ambulatory [facility] [place] 11/04/2023 Ambulatory [facility] [place] 08/04/2023 Ambulatory Fibromyalgia [facility] 07/07 Ambulatory [facility] [place] 07/20/2023 Ambulatory [facility] [place] 07/19/2023 Ambulatory [facility] [place] 07/14/2023 Ambulatory [facility] [place] 06/15/2023 Ambulatory [facility] [place] 06/14/2023 Ambulatory [facility] [place] 06/14/2023 Ambulatory [facility] [place] 06/14/2023 Ambulatory [facility] [place] 06/14/2023 Care Team Organization Name Specialty Phone Email Start Date End Da te [facility], Diane Cui MD Primary Care 07/05/2024 [facility] Diane Cui MD Primary Care 05/17/2024 [facility] 05/06/2024 [facility] Diane Cui MD Primary Care 04/26/2024 [facility] DIANE CUI Primary Care 0 07/29/2023 [facility] Primary Care 07/27/2023 [facility] 08/07/2022 PodiatryCJune weber MD Primary Care
--- OUTSIDE RECORDS SUMMARY | 2024-09-14 13:21 | XMS_ITS | Clinical Summary ---
Author Organization [facility] Address [address] [facility] [place] [address] Phone Care Team Providers Care Business Banking Officer Name Role Phone Steven Casas MD Primary Care Provider [phone] Allergies Active Allergy Reactions Criticality Noted Date [...] Encounters Date Type Department Care Team Description 07/26/2024 8:52 AM EDT - 07/26/2024 11:59 PM EDT Hospital Encounter [facility] Ultrasound [address] [place] [phone] Other microscopic hematuria Discharge Disposition: Home or Self Care 07/03/2024 1:45 PM EDT - 07/03/2024 11:59 PM EDT Hospital Encounter [facility] Bone Density [address] [place] [phone] Asymptomatic menopausal state Discharge Disposition: Home or Self Care 07/03/2024 1:44 PM EDT - 07/03/2024 11:59 PM EDT [facility] [address] [place] [phone] Encounter for screening mammogram for malignant neoplasm of breast Discharge Disposition: Home or Self Care from Last 3 Months Immunizations Name Administration Dates Next Due Pfizer SARS-CoV-2 COVID-19, mRNA, LNP-S, preservative free 12/05/2020 Medical History Medical History Date Comments Depression DX:Depression Social History Tobacco Use Types Packs/Day Years Used Date Smoking Tobacco: Never Smokeless Tobacco: Never Interpersonal Safety Answer Date Record ed Physical Abuse 04/29/2024 Verbal Abuse 04/29/2024 Comments No Sex and Gender Information Value Date Recorded Sex Assigned at Female 04/26/2024 7:32 AM EST Legal Sex Female 5:00 PM EST Gender Identity Female 04/26/2024 7:32 AM EST Sexual Orientation Straight 04/26/2024 7: 32 AM EST Obstetrics History Para Term AB IAB SAB Ectopic Multiple Livin g Live Births 3 Last Filed Vital Signs Vital Sign Reading Time Taken Comments Blood Pressure 135/80 05/01/2024 11:32 AM EST Pulse 85 05/01/2024 11:32 AM EST Temperature 36.8 C (98.2 F) 05/01/2024 7:52 AM EST Respiratory Rate 16 05/01/2024 7:52 AM EST Oxygen Saturation 98% 05/01/2024 7:52 AM EST Inhaled Oxygen Concentration - - Weight 72.6 kg (160 lb) 07/03/2024 2:04 PM EDT Height 172.7 cm (5' 8 ) 07/03/2024 2:04 PM EDT Body Mass Index 24.33 07/03/2024 2:04 PM EDT Plan of Treatment Health Maintenance Due Date Last Done Comments DTaP,Tdap,and Td Vaccines (1 - Tdap) 07/14/1970 Hepatitis A Vaccines (1 of 2 - Risk 2-dose series) 07/14/1970 Pneumococcal Vaccine: 50+ Years (1 of 1 - PCV) 07/14/2001 Zoster Vaccines (1 of 2) 07/14/2001 Colorectal Cancer Screening: Colonoscopy 02/04/2022 Depression Screening 02/04/2022 Hepatitis C Screening 02/04/2022 Medicare Annual Wellness Visit 02/04/2022 Social Influencers of Health Screening 02/04/2022 COVID-19 Vaccine ( season) 2023 12/24/2022, 11/13/2021, 12/05/2020 Influenza Vaccine (#1) 2024 11/06/2022 Falls Risk Assessment 05/01/2025 05/01/2024 Hypertension/CHF/CAD Annual BMP Blood Test 05/01/2025 05/01/2024, 04/30/2024, 04/29/2024, Additional history exists Breast Cancer Screening 07/03/2026 07/04/19, 08/13/2020, 12/21/2017 Cholesterol Screening (Lipid Panel) 04/26/2029 04/26/2024, 07/27/2023, 07/27/2023, Additional history exists Osteoporosis Screening (Bone Density Screening) 07/03/2034 07/03/2024, 08/13/2020 RSV Immunization Adult Patients Completed 11/06/2022 [...] Procedure Name Priority Date/Time Associated Diagnosis Comments US RETROPERITONEAL COMPLETE Routine 07/26/2024 9:22 AM EDT Other microscopic hematuria MG MAMMO DIGITAL SCREENING W BRAIN BILAT Routine 07/03/2024 3:10 PM EDT Encounter for screening mammogram for malignant neoplasm of breast BD BONE DENSITY DXA AXIAL SKELETON Routine 07/03/2024 2:42 PM EDT Asymptomatic menopausal state ..URINALYSIS MICROSCOPIC REFLEX URINE CULTURE Routine 07/03/2024 10:24 AM EDT Bacteriuria, asymptomatic URINALYSIS WITH REFLEX MICROSCOPIC AND CULTURE Routine 07/03/2024 10:24 AM EDT Bacteriuria, asymptomatic URINALYSIS WITH REFLEX MICROSCOPIC AND CULTURE Routine 07/03/2024 10:24 AM EDT Bacteriuria, asymptomatic CULTURE URINE Routine 07/03/2024 10:24 AM EDT Bacteriuria, asymptomatic BASIC METABOLIC PANEL Routine 05/01/2024 7:24 AM EST LIPID PANEL WITH REFLEX TO DIRECT LDL Routine 04/26/2024 8:09 AM EST Pure hypercholesterolemi a Impaired fasting glucose Anemia, unspecified Dysuria Avitaminosis D from Last 3 Months or Most Recently Relevant to Health Maintenance Results * US Retroperitoneal Complete (07/26/2024 9:22 AM EDT) Anatomical Region Laterality Modality Body Ultrasound 08/02/2024 9:11 AM EDT Impressions 08/02/2024 9:13 AM EDT 1. No hydronephrosis, suspicious renal lesions identified, or sonographic evidence of nephrolithiasis. 2. Incidental hepatomegaly and hyperechoic liver parenchyma suggestive of underlying hepatocellular disease, most commonly steatosis. Report reviewed and signed by : Dr. Jacek Nguyen on 08/02/2024 9:13 AM. Workstation Name - [id number] -------- FINAL REPORT -------- Dictated By: Jacek Nguyen Dictated Date: 08/02/2024 09:11 ET Assigned Physician: Jacek Nguyen Reviewed and Electronically Signed By: Jacek Nguyen Signed Date: 08/02/2024 09:13 ET Workstation ID: [id number] Transcribed By: Self Edit Transcribed Date: 08/02/2024 09:11 ET Narrative 08/02/2024 9:13 AM EDT EXAMINATION: US RETROPERITONEAL COMPLETE INDICATION: Micro hematuria COMPARISON: None. TECHNIQUE: Eric scale and color doppler images were obtained of the kidneys, urinary bladder and retroperitoneal structures. FINDINGS: RIGHT KIDNEY: Measures 8.6 cm in length. Normal cortical thickness and echogenicity. No hydronephrosis. No calculi identified. No suspicious renal lesions seen. LEFT KIDNEY: Measures 10.0 cm in length. Normal cortical thickness and echogenicity. No hydronephrosis. No calculi identified. 2.1 cm No suspicious renal lesions seen. BLADDER: Unremarkable without calculi or suspicious lesions identified. Normal postvoid residual bladder volume VASCULAR: Visualized abdominal aorta normal in caliber. Visualized IVC patent. OTHER: Incidental enlarged, hyperechoic liver. Procedure Note Jacek Nguyen MD - 08/02/2024 EXAMINATION: US RETROPERITONEAL COMPLETE INDICATION: Micro hematuria COMPARISON: None. TECHNIQUE: Eric scale and color doppler images were obtained of thekidneys, urinary bladder and retroperitoneal structures. FINDINGS: RIGHT KIDNEY: Measures 8.6 cm in length. Normal cortical thickness and echogenicity.No hydronephrosis. No calculi identified. No suspicious renal lesionsseen. LEFT KIDNEY: Measures 10.0 cm in length. Normal cortical thickness and echogenicity.No hydronephrosis. No calculi identified. 2.1 cm No suspicious renallesions seen. BLADDER: Unremarkable without calculi or suspicious lesions identified.Normal postvoid residual bladder volume VASCULAR: Visualized abdominal aorta normal in caliber. Visualized IVCpatent. OTHER: Incidental enlarged, hyperechoic liver. IMPRESSION: 1. No hydronephrosis, suspicious renal lesions identified, or sonographicevidence of nephrolithiasis. 2. Incidental hepatomegaly and hyperechoic liver parenchyma suggestive ofunderlying hepatocellular disease, most commonly steatosis. Report reviewed and signed by : Dr. Jacek Nguyen on 08/02/2024 9:13 AM.Workstation Name - [id number] -------- FINAL REPORT -------- Dictated By: Jacek Nguyen Dictated Date: 08/02/2024 09:11 ET Assigned Physician: Jacek Nguyen Reviewed and Electronically Signed By: Jacek Nguyen Signed Date: 08/02/2024 09:13 ET Workstation ID: [id number] Transcribed By: Self Edit Transcribed Date: 08/02/2024 09:11 ET us Steven Casas MD IMG US PROCEDURES Final Resu lt * MG Mammo Digital Screening w Brain bilat (07/03/2024 3:10 PM EDT) Anatomical Region Laterality Modality Breast Bilateral Mammography 07/03/2024 4:07 PM EDT Impressions 07/03/2024 4:13 PM EDT No evidence of breast malignancy. BI-RADS CATEGORY: 1 - NEGATIVE RECOMMENDATION: Screening bilateral mammogram is recommended in 1 year. Mammo Location: [facility], [address] [place] [address], [id number], . -------- FINAL REPORT -------- Dictated By: Alia Caldwell Dictated Date: 07/03/2024 16:07 ET Assigned Physician: Alia Caldwell Reviewed and Electronically Signed By: Alia Caldwell Signed Date: 07/03/2024 16:13 ET Workstation ID: [id number] Transcribed By: Self Edit Transcribed Date: 07/03/2024 16:07 ET Narrative 07/03/2024 4:13 PM EDT CLINICAL: 73 years old, Female, routine annual exam. COMPARISON: 08/13/2020 TECHNIQUE: Bilateral MLO and CC views were obtained digitally with 3-D mammogram (digital breast tomosynthesis). Computer-aided detection was utilized in evaluation of this exam (CAD). FINDINGS: There is no evidence of suspicious mass or architectural distortion. No worrisome calcifications are evident. There has been no significant change from prior exam(s). BREAST DENSITY: B - There are scattered areas of fibroglandular density. Procedure Note Alia Caldwell MD - 07/03/2024 CLINICAL: 73 years old, Female, routine annual exam. COMPARISON: 08/13/2020 TECHNIQUE: Bilateral MLO and CC views were obtained digitally with 3-Dmammogram (digital breast tomosynthesis). Computer-aided detection wasutilized in evaluation of this exam (CAD). FINDINGS: There is no evidence of suspicious mass or architectural distortion. Noworrisome calcifications are evident. There has been no significantchange from prior exam(s). BREAST DENSITY: B - There are scattered areas of fibroglandular density. IMPRESSION: No evidence of breast malignancy. BI-RADS CATEGORY: 1 - NEGATIVE RECOMMENDATION: Screening bilateral mammogram is recommended in 1 year. Mammo Location: [facility], [address] [place] [address], [id number], . -------- FINAL REPORT -------- Dictated By: Alia Caldwell Dictated Date: 07/03/2024 16:07 ET Assigned Physician: Alia Caldwell Reviewed and Electronically Signed By: Alia Caldwell Signed Date: 07/03/2024 16:13 ET Workstation ID: [id number] Transcribed By: Self Edit Transcribed Date: 07/03/2024 16:07 ET us Steven Casas MD IMG BI PROCEDURES Final Resu lt * BD Bone Density DXA Axial Skeleton (07/03/2024 2:42 PM EDT) Anatomical Region Laterality Modality Wrist, Hip, L-spine Bone Densito metry 07/03/2024 4:14 PM EDT Impressions 07/03/2024 4:15 PM EDT Normal bone mineral density. [place] ([id number]) -------- FINAL REPORT -------- Dictated By: Ashley Hung Dictated Date: 07/03/2024 16:14 ET Assigned Physician: Ashley Hung Reviewed and Electronically Signed By: Ashley Hung Signed Date: 07/03/2024 16:15 ET Workstation ID: [id number] Transcribed By: Self Edit Transcribed Date: 07/03/2024 16:14 ET Narrative 07/03/2024 4:15 PM EDT History: Low estrogen state due to menopause. Personal history of fracture. Comparison: 08/13/20 Findings: Bone densitometry is performed utilizing dual energy x-ray absorptiometry (DXA) in the RestoMestoigy unit. The lumbar spine and proximal femora are evaluated in the AP projection. The FRAX questionaire was completed. The results indicate normal bone mineral density, with a left femoral neck T- score of -1.0. The Z score is 0.6, indicating bone mineral density within the range of normal for age. There is been no statistically significant change. The detailed DEXA report will be mailed to the referring physician's office. DualFemur FRAX: 10-year Probability of Fracture: Major Osteoporotic 13.0 percent Hip 1.1 percent. Procedure Note Ashley Hung MD - 07/03/2024 History: Low estrogen state due to menopause. Personal history offracture. Comparison: 08/13/20 Findings: Bone densitometry is performed utilizing dual energy x-ray absorptiometry(DXA) in the Vivogig Prodigy unit. The lumbar spine and proximal femora areevaluated in the AP projection. The FRAX questionaire was completed. The results indicate normal bone mineral density, with a left femoral neckT- score of -1.0. The Z score is 0.6, indicating bone mineral densitywithin the range of normal for age. There is been no statistically significant change. The detailed DEXAreport will be mailed to the referring physician's office. DualFemur FRAX: 10-year Probability of Fracture: Major Osteoporotic 13.0percent Hip 1.1 percent. IMPRESSION: Normal bone mineral density. Telerad IAN ([id number]) -------- FINAL REPORT -------- Dictated By: Ashley Hung Dictated Date: 07/03/2024 16:14 ET Assigned Physician: Ashley Hung Reviewed and Electronically Signed By: Ashley Hung Signed Date: 07/03/2024 16:15 ET Workstation ID: [id number] Transcribed By: Self Edit Transcribed Date: 07/03/2024 16:14 ET us Steven Casas MD IMG DXA PROCEDURES Final Res ult * (ABNORMAL) Urinalysis with reflex microscopic and culture (07/03/2024 10:24 AM EDT) Color, Urine Yellow Colorless, Yellow LAB URINALYSIS - AUTOMATED METHOD 07/03/2024 10:38 AM [facility] Clarity, Urine Clear Clear LAB URINALYSIS - AUTOMATED METHOD 07/03/2024 10:38 AM [facility] Specific [place] Urine <=1.005 1.005 - 1.030 LAB URINALYSIS - AUTOMATED METHOD 07/03/2024 10:38 AM [facility] pH, Urine 5.5 5.0 - 8.0 pH LAB URINALYSIS - AUTOMATED METHOD 07/03/2024 10:38 AM [facility] Leukocytes, Urine Trace(A) Negative WBCs/mcL LAB URINALYSIS - AUTOMATED METHOD 07/03/2024 10:38 AM [facility] Nitrite, Urine Negative Negative LAB URINALYSIS - AUTOMATED METHOD 07/03/2024 10:38 AM [facility] Protein, Urine Negative Negative mg/dL LAB URINALYSIS - AUTOMATED METHOD 07/03/2024 10:38 AM [facility] Glucose, Urine Negative Negative mg/dL LAB URINALYSIS - AUTOMATED METHOD 07/03/2024 10:38 AM [facility] Ketones, Urine Negative Negative mg/dL LAB URINALYSIS - AUTOMATED METHOD 07/03/2024 10:38 AM [facility] Blood, Urine Moderate(A) Negative mg/dL LAB URINALYSIS - AUTOMATED METHOD 07/03/2024 10:38 AM EDT [facility] Urine Urine specimen obtained by clean catch procedure / Unknown Non-blood Collection / Unknown 07/03/2024 10:24 AM EDT 07/03/2024 10:24 AM EDT us Yrn BACHP LAB URINE ORDERABLES Final Result Performing Organization Address City/[facility]/ZIP Co de Phone Number [facility] [address] [place] [address], [place] [phone] * (ABNORMAL) Urinalysis microscopic reflex urine culture (07/03/2024 10:24 AM EDT) RBC, Urine 4(H) 0 - 3 /HPF 07/03/2024 10:48 AM EDT [facility] WBC, Urine 5 0 - 5 /HPF 07/03/2024 10:48 AM EDT [facility] Squamous Epithelial, Urine 1 0 - 5 /HPF 07/03/2024 10:48 AM EDT [facility] Hyaline Casts, Urine 1 <5 /LPF 07/03/2024 10:48 AM EDT [facility] Urine Urine specimen obtained by clean catch procedure / Unknown Non-blood Collection / Unknown 07/03/2024 10:24 AM EDT 07/03/2024 10:24 AM EDT us Yrn AGUIRRE LAB URINE ORDERABLES Final Result Performing Organization Address City/[facility]/ZIP Co de Phone Number [facility] [address] [place] [address], [place] [phone] * Culture urine (07/03/2024 10:24 AM EDT) Culture, Urine No growth 07/04/2024 9:43 AM EDT [facility] Urine Urine specimen obtained by clean catch procedure / Unknown Non-blood Collection / Unknown 07/03/2024 10:24 AM EDT 07/03/2024 10:38 AM EDT Yrn Juárez [facility]EARCH SUB[facility] LAB MICROBIOLOGY - GENERAL ORDERABLES Final Result [facility] [address] [place] [address], [place] [phone] * Basic metabolic panel (05/01/2024 7:24 AM EST) Sodium 142 135 - 145 mmol/L LAB CHEMISTRY METHOD 05/01/2024 8:43 AM [facility] Potassium 4.4 3.5 - 5.1 mmol/L LAB CHEMISTRY METHOD 05/01/2024 8:43 AM [facility] Chloride 106 98 - 107 mmol/L LAB CHEMISTRY METHOD 05/01/2024 8:43 AM [facility] CO2 29 24 - 32 mmol/L LAB CHEMISTRY METHOD 05/01/2024 8:43 AM [facility] Anion Gap 7 5 - 14 LAB CHEMISTRY METHOD 05/01/2024 8:43 AM [facility] Glucose 102 70 - 199 mg/dL LAB CHEMISTRY METHOD 05/01/2024 8:43 AM [facility] BUN 16 7 - 17 mg/dL LAB CHEMISTRY METHOD 05/01/2024 8:43 AM [facility] Creatinine 1.00 0.50 - 1.00 mg/dL LAB CHEMISTRY METHOD 05/01/2024 8:43 AM [facility] eGFR 60 >=60 mL/min/1. 73m2 LAB CHEMISTRY METHOD 05/01/2024 8:43 AM [facility] Comment:Calculation based on the Chronic Kidney Disease Epidemiology Collaboration (CKD-EPI) equation refit without adjustment for race. BUN/Creatinine Ratio 16.0 12.0 - 20.0 LAB CHEMISTRY METHOD 05/01/2024 8:43 AM EST [facility] Calcium 9.6 8.4 - 10.2 mg/dL LAB CHEMISTRY METHOD 05/01/2024 8:43 AM EST [facility] Blood Venous blood specimen / Unknown Venipuncture / Unknown 05/01/2024 7:24 AM EST 05/01/2024 8:29 AM EST Jacek Ordaz DO LAB BLOOD ORDERABLES Final Result [facility] [address] [place] [address], [place] [phone] * (ABNORMAL) Lipid panel with reflex to direct LDL (04/26/2024 8:09 AM EST) Cholesterol 195 0 - 200 mg/dL LAB CHEMISTRY METHOD 04/26/2024 2:49 PM [facility] Triglycerides 56 <150 mg/dL LAB CHEMISTRY METHOD 04/26/2024 2:49 PM [facility] HDL 95(H) 33 - 92 mg/dL LAB CHEMISTRY METHOD 04/26/2024 2:49 PM EST [facility] LDL Calculated 89 50 - 130 mg/dL LAB CHEMISTRY METHOD 04/26/2024 2:49 PM EST [facility] VLDL Cholesterol Jose 11.2 mg/dL LAB CHEMISTRY METHOD 04/26/2024 2:49 PM EST [facility] Comment:No established refer ence range. Blood Venous blood specimen / Unknown Venipuncture / Unknown 04/26/2024 8:09 AM EST 04/26/2024 8:12 AM EST Steven Casas MD LAB BLOOD ORDERABLES Final R esult [facility] [address] [place] [address], [place] [phone] from Last 3 Months or Most Recently [...] currently active code status orders. Care Teams Business Banking Officer Relationship Specialty Start Date End Date Steven Casas MD [address] [place] [address] Dr Ravindra [address] JERRY White PCP - General Internal Medicine 12/04/20
== END 2024-09-14 13:57 | disposition home or self-care (01) ==
LOC: HO.HMCH 13:18
PROVIDERS: PCP Internal Medicine; Visit Provider Internal Medicine
DX: Z01.818 Encounter for other preprocedural examination (principal); N28.89 Other specified disorders of kidney and ureter; I48.0 Paroxysmal atrial fibrillation; M79.7 Fibromyalgia; M19.041 Primary osteoarthritis, right hand; M19.042 Primary osteoarthritis, left hand; D64.9 Anemia, unspecified; E55.9 Vitamin D deficiency, unspecified; R73.01 Impaired fasting glucose; F41.9 Anxiety disorder, unspecified; F33.9 Major depressive disorder, recurrent, unspecified; F98.8 Other specified behavioral and emotional disorders with onset usually occurring in childhood and adolescence

== ENCOUNTER 2024-09-14 13:17 | Outpatient (REF) | payer MEDICARE, SELFPAY ==
[2024-09-14 14:13] LABS: MANUAL DIFF FLAG NO
[2024-09-14 14:39] LABS: Hematocrit 36.4 % (37.0-47.0); Hemoglobin 12.4 g/dl (12.0-16.0); Imm Gran Abs Auto 0.02 X10*3/uL (0.00-0.03); Imm Gran Pct Auto 0.3 % (0.0-0.4); Lymphocytes Absolute Auto 1.7 X10*3/uL (1.2-4.9); Mean Corpuscular HGB Conc 34.1 g/dl (31.0-35.0); Mean Corpuscular Hemoglobin 31.3 pg (27.0-33.0); Mean Corpuscular Volume 91.9 fL (80.0-98.0); NRBC Abs Auto 0.000 X10*3/uL (0.0-0.012); NRBC Pct Auto 0.0 /100WBC (0.0-0.2); Platelet Count 341 X10*3/uL (160-400); Red Blood Count 3.96 X10*6/uL (4.20-5.50); White Blood Count 6.4 X10*3/uL (4.8-10.8)
[2024-09-14 15:18] LABS: Alanine Aminotransferase 21 U/L (0-31); Albumin Level 4.3 g/dL (3.5-5.0); Alkaline Phosphatase 74 U/L (39-117); Anion Gap 10 (12-20); Aspartate Amino Transferase 19 U/L (5-31); Blood Urea Nitrogen 17 mg/dL (9-16); Calcium 9.7 mg/dL (8.4-10.2); Carbon Dioxide 28 mmol/L (22-29); Chloride 107 mmol/L (96-108); Estimated Glomerular Filt Rate 49; Potassium 4.6 mmol/L (3.3-5.1); Sodium 140 mmol/L (135-145); Total Protein 6.9 g/dL (6.5-8.0)
== END 2024-09-14 13:18 | disposition home or self-care (01) ==
LOC: HO.LAB 13:17
PROVIDERS: PCP Internal Medicine; Visit Provider Internal Medicine
DX: Z01.818 Encounter for other preprocedural examination (principal); D64.9 Anemia, unspecified
CPT/HCPCS: 36415; 80053; 85025; 96127